=== PATIENT | male | born 1950 | race Caucasian/White ===

== ENCOUNTER 2016-05-21 12:51 | Inpatient (IN) | payer MEDICARE, OTHER ==
[2016-05-21] MEDS ORDERED: Levofloxacin/Dextrose 5%-Water 750 MG in Premix Bag 1 BAG IV ONE (13:05)
[2016-05-21] MEDS ORDERED: metroNIDAZOLE/Normal Saline 500 MG in Premix Bag 1 BAG IV ONE (13:06)
[2016-05-21] MEDS ORDERED: Acetaminophen 325 MG Tab PO ONE (13:07)
[2016-05-21] MEDS ORDERED: Lidocaine 2% Jelly 10 ML Urojet MUCMEM ONE (13:09)
--- NOTE | 2016-05-21 13:13 | EDM.PDOC ---
ED HPI GI/ABDOMINAL - General Chief Complaint: Abdominal Pain Stated Complaint: DIVERTICULITIS Time Seen by Provider: 05/21/16 12:55 Source of Information: Reports: Patient History Limitations: Reports: No limitations - History of Present Illness INITIAL COMMENTS - FREE TEXT/NARRATIVE: 65-year-old male presents to the ED with the fever chills and diffuse left lower quadrant abdominal pain. Patient was seen in the clinic via [facility] at [facility] about 2 weeks ago and was placed on a combination of Cipro and Flagyl he believes for 5 days for suspect diverticulitis. He encountered no side effects from the antibiotic such as diarrhea. Over the last 3 days left lower quadrant pain has increased in intensity. He developed high fever and chills overnight. He did have a CT scan performed at [facility] this morning and identified acute sigmoid diverticulitis. White count was also elevated at 16,000. His chief complaint was inability to void this morning. He still feels a constant need to void but is unable to pee. Bladder scan done immediately here revealed about 360 mils in his bladder. A Wynn catheter will be placed with plans on sending the urine for analysis. It is likely that the sigmoid diverticulitis his implant his prostate causing him to develop urinary retention. Plan he will have blood cultures done x2 with a CRP. After this Levaquin 750 mg will be started IV followed by Flagyl 500 mg IV since the diagnosis is already evident. Symptom Onset Date: 05/04/16 (He believes beginning symptoms started about the 14th almost 2 weeks ago. Recurrence of symptoms over the last 3-4 days. Left lower quadrant pain and inability to void today.) Timing/Duration: Reports: Day(s): Location: [facility] Quality: Reports: ache, cramping, fullness Severity: severe Improves with: Denies: defecating Worsens with: Reports: other Context: Reports: other (Diagnosed with acute sigmoid diverticulitis.). Denies : sick contact (Unable to urinate), bad/questionable food, out of country travel , recent surgery, recent trauma, lifting, activity/exercise Associated Symptoms: Reports: fever/chills, loss of appetite, malaise, nausea/ vomiting, other (As you without vomiting. Urinary retention.) Treatments BRIM BUSTER: Reports: Other (see below) (None) - Related Data Allergies/ADRs: Allergies Allergy/AdvReac Type Severity Reaction Status Date / Time No Known Allergies Allergy Verified 05/21/16 13:03 Home Meds: Home Meds Bp Pill. 08/24/13 [History] Hctz. 08/24/13 [History] Past Medical History Cardiovascular History: Reports: Hypertension Gastrointestinal History: Reports: Diverticulosis, Other (see below) ( Diverticulitis acute) Social & Family History - Tobacco Use Second Hand Smoke Exposure: No - Caffeine Use Caffeine Use: Reports: Coffee - Recreational Drug Use Recreational Drug Use: Yes - Living Situation & Occupation Living situation: Reports: Occupation: employed (Self-employed [employer].) ED ROS GENERAL - Review of Systems Review Of Systems: See Below Constitutional: Reports: fever, chills, malaise, weakness, fatigue, decreased appetite HEENT: Reports: No symptoms Respiratory: Reports: No Symptoms Cardiovascular: Reports: No symptoms Endocrine: Reports: no symptoms GI/Abdominal: Reports: Abdominal pain (See history of present illness), Decreased appetite, Nausea. Denies: Vomiting : Reports: urinary retention (Unable to void this morning) Musculoskeletal: Reports: no symptoms Skin: Reports: no symptoms Neurological: Reports: No Symptoms Psychiatric: Reports: No symptoms Hematologic/Lymphatic: Reports: no symptoms ED EXAM, GI/ABD - Physical Exam Exam: See Below Exam Limited By: No limitations General Appearance: alert, WD/WN, anxious (Mildly anxious) Eyes: bilateral: normal appearance (No jaundice) Throat/Mouth: Normal inspection, Normal lips, Normal oropharynx, Other Head: atraumatic, normocephalic (Tongue is mildly dry) Neck: normal inspection, supple, non-tender, full range of motion. No: lymphadenopathy (L), lymphadenopathy (R) Respiratory/Chest: no respiratory distress, lungs clear, normal breath sounds, no accessory muscle use, respiratory distress (Mild tachypnea due to anxiety) Cardiovascular: normal peripheral pulses, regular rate, rhythm, no edema, no gallop, no murmur, tachycardia (Mild tachycardia I believe from fever.) GI/Abdominal: hyperactive bowel sounds, tenderness, guarding, rebound (Left lower), other (Bladder is not palpable up to the umbilicus. It is perhaps palpable just above the pubic symphysis.). No: rigidity ( left lower quadrant) , hepatomegaly, splenomegaly, hernia (Male) Exam: No hernia, Normal inspection Back Exam: normal inspection, full range of motion. No: CVA tenderness (L), CVA tenderness (R) Extremities: normal inspection, normal range of motion, non-tender, no pedal edema, normal capillary refill Neurological: alert, oriented, CN II-XII intact, normal cognition Skin Exam: Warm. No: Dry (Feels very warm to palpation.), Intact, Normal color , No rash Course - Vital Signs Last Recorded V/S: Last Vital Signs Temp 38.5 C H 05/21/16 13:23 Pulse 70 05/21/16 13:09 Resp 18 05/21/16 13:09 BP 135/78 05/21/16 13:09 Pulse Ox 97 05/21/16 13:09 - Orders/Labs/Meds Orders: Active Orders 24 hr Category Date Time Status Insert Wynn Catheter [Insert Urinary Catheter] [OM.PC] Care 05/21/16 13:15 Ordered Q24H Urinary Catheter Assessment [RC] ASDIRECTED Care 05/21/16 13:10 Active CULTURE BLOOD [BC] Stat Lab 05/21/16 13:20 Received CULTURE BLOOD [BC] Stat Lab 05/21/16 13:32 Received Sodium Chloride 0.9% [Normal Saline] 1,000 ml Med 05/21/16 13:15 Active IV ASDIRECTED Blood Culture x2 Reflex Set [OM.PC] Stat Oth 05/21/16 13:05 Ordered Medication Orders Sodium Chloride (Normal Saline) 1,000 mls @ 150 mls/hr IV ASDIRECTED MONSERRAT Last Admin: 05/21/16 13:27 Dose: 150 mls/hr Labs: Laboratory Tests 05/21/16 05/21/16 05/21/16 Range/Units 13:20 13:20 14:05 WBC 16.13 H (4.23-9.07) K/mm3 RBC 4.71 (4.63-6.08) M/mm3 Hgb 14.4 (13.7-17.5) gm/L Hct 41.4 (40.1-51.0) % MCV 87.9 (79.0-92.2) fl MCH 30.6 (25.7-32.2) pg MCHC 34.8 (32.2-35.5) g/dl RDW Std Deviation 41.9 (35.1-43.9) fL Plt Count 218 (163-337) K/mm3 MPV 10.3 (9.4-12.3) fl Neutrophils % (Manual) 87 H (40-60) % Band Neutrophils % 0 (0-10) % Lymphocytes % (Manual) 8 L (20-40) % Atypical Lymphs % 0 % Monocytes % (Manual) 5 (2-10) % Eosinophils % (Manual) 0 L (0.8-7.0) % Basophils % (Manual) 0 L (0.2-1.2) Platelet Estimate Adequate RBC Morph Comment Normal Sodium 135 L (136-145) mEq/L Potassium 3.5 (3.5-5.1) mEq/L Chloride 102 (98-107) mEq/L Carbon Dioxide 24 (21-32) mEq/L Anion Gap 12.5 (5-15) BUN 22 H (7-18) mg/dL Creatinine 1.0 (0.7-1.3) mg/dL Est Cr Clr Drug Dosing 79.76 mL/min Estimated GFR (MDRD) > 60 (>60) mL/min BUN/Creatinine Ratio 22.0 H (14-18) Glucose 127 H (80-115) mg/dL Calcium 9.0 (8.5-10.1) mg/dL Total Bilirubin 1.5 H (0.2-1.0) mg/dL AST 25 (15-37) U/L ALT 36 (16-63) U/L Alkaline Phosphatase 48 (46-116) U/L C-Reactive Protein 7.6 H* (<1.0) mg/dL Total Protein 6.5 (6.4-8.2) g/dl Albumin 3.5 (3.4-5.0) g/dl Globulin 3.0 gm/dL Albumin/Globulin Ratio 1.2 (1-2) Urine Color Yellow (Yellow) Urine Appearance Slt cloudy H (Clear) Urine pH 8.5 H (5.0-8.0) Ur Specific [place] 1.015 (1.005-1.030) Urine Protein 1+ H (Negative) Urine Glucose (UA) Negative (Negative) Urine Ketones Trace H (Negative) Urine Occult Blood 1+ H (Negative) Urine Nitrite Negative (Negative) Urine Bilirubin Negative (Negative) Urine Urobilinogen 0.2 (0.2-1.0) Ur Leukocyte Esterase Negative (Negative) Urine RBC 10-20 H (0-5) /hpf Urine WBC 0-5 (0-5) /hpf Ur Squamous Epith Cells Not seen (0-5) /hpf Urine Bacteria Few (FEW) /hpf Urine Mucus Few (FEW) /hpf Meds: Medications Generic Name Dose Route Start Last Admin Trade Name Freq PRN Reason Stop Dose Admin Sodium Chloride 1,000 mls @ 150 mls/hr 05/21/16 13:15 05/21/16 13:27 Normal Saline IV 150 mls/hr ASDIRECTED MONSERRAT Administration Discontinued Medications Generic Name Dose Route Start Last Admin Trade Name Freq PRN Reason Stop Dose Admin Acetaminophen 975 mg 05/21/16 13:07 05/21/16 13:23 Tylenol PO 05/21/16 13:08 975 mg NOW ONE Administration Hydromorphone HCl 0.5 mg 05/21/16 13:18 05/21/16 13:35 Dilaudid IVPUSH 05/21/16 13:19 0.5 mg ONETIME ONE Administration Levofloxacin/Dextrose 750 mg/ 150 mls @ 100 mls/hr 05/21/16 13:05 05/21/16 13 :57 Premix IV 05/21/16 14:34 100 mls/hr ONETIME ONE Administration Metronidazole 500 mg/ Premix 100 mls @ 100 mls/hr 05/21/16 13:06 IV 05/21/16 14:05 ONETIME ONE Levofloxacin/Dextrose Confirm 05/21/16 13:15 05/21/16 14:04 Levaquin In D5w 750 Mg/150 Ml Administered 05/21/16 13:16 Not Given Dose 150 mls @ as directed IV .STK-MED ONE Lidocaine HCl 10 ml 05/21/16 13:09 05/21/16 13:31 Xylocaine 2% Jelly MUCMEM 05/21/16 13:10 10 ml ONETIME ONE Administration Ondansetron HCl 4 mg 05/21/16 13:18 05/21/16 13:38 Zofran IVPUSH 05/21/16 13:19 4 mg ONETIME ONE Administration - Radiology Interpretation Free Text/Narrative:: 65-year-old male presents the ED for evaluation of urinary retention. He was seen to the clinic this morning at [facility] and identified by CT to have acute sigmoid diverticulitis. He was treated with a short course of antibiotics Cipro and Flagyl for 5 days about 2 weeks ago for suspect diverticulitis. It appears that has reoccurred. He's developed increasing left lower quadrant abdominal pain over the last 3-4 days. Developed fever and chills overnight and this morning again. This included riders were his teeth chattering. Then developed inability to void over the last 4-6 hours. Has a constant feeling of need to void but is unable to do so. Bladder scan reveals about 3 or 60 mils of urine in the bladder. Therefore Wynn will be placed with plan to leave it in until we can get the infection under control. This is blood cultures x2 are collected and labs are completed he'll be started on Levaquin 750 mg IV and Flagyl 500 mg IV. Will be given Tylenol 975 mg orally for fever relief. We'll give him Zofran 4 mg and Dilaudid 0.5 mg for pain relief. - Re-Assessments/Exams Free Text/Narrative Re-Assessment/Exam: 05/21/16 14:55 Labs are finally back showing a white count of 16.13 with a left shift of 87% neutrophils and no bands hemoglobin is 14.4 with hematocrit of 41.4 platelets 218,000. Chemistry shows a sodium of 135 potassium low-normal at 3.5 glucose 127 and a gap is 12.5 CRP is elevated at 7.6. I had looked at the CT sent across from [facility] that was done this morning and it does show an extensive sigmoid diverticulitis. The urinalysis is within normal limits it had a few red cells in it from catheterization. There is no infection however. Case discussed with Dr. Babcock tanner rotary drum continuous process hospitalist and she'll attend the patient in the emergency room with a view to admission to the hospital for inpatient management of his infection. Patient feels that there is some relief of the discomfort after having a Wynn catheter placed and therefore we'll leave it in. Fortunately the infection in the rectosigmoid is right behind his prostate which is causing the constant feeling of need to void and then inability to void for a period of time. Departure - Departure Time of Disposition: 15:10 Disposition: Admitted As Inpatient 65 Condition: fair Clinical Impression: Urinary retention, Acute febrile illness Diverticulitis large intestine Qualifiers: Diverticulitis bleeding: without bleeding Diverticulitis complication: without perforation or abscess Qualified Code(s): K57.32 - Diverticulitis of large intestine without perforation or abscess without bleeding Forms: ED Department Discharge - My Orders Last 24 Hours: My Active Orders 05/21/16 13:05 Blood Culture x2 Reflex Set [OM.PC] Stat 05/21/16 13:10 Urinary Catheter Assessment [RC] ASDIRECTED 05/21/16 13:15 Insert Wynn Catheter [Insert Urinary Catheter] [OM.PC] Q24H Sodium Chloride 0.9% [Normal Saline] 1,000 ml IV ASDIRECTED 05/21/16 13:20 CULTURE BLOOD [BC] Stat 05/21/16 13:32 CULTURE BLOOD [BC] Stat - Assessment/Plan Last 24 Hours: My Active Orders 05/21/16 13:05 Blood Culture x2 Reflex Set [OM.PC] Stat 05/21/16 13:10 Urinary Catheter Assessment [RC] ASDIRECTED 05/21/16 13:15 Insert Wynn Catheter [Insert Urinary Catheter] [OM.PC] Q24H Sodium Chloride 0.9% [Normal Saline] 1,000 ml IV ASDIRECTED 05/21/16 13:20 CULTURE BLOOD [BC] Stat 05/21/16 13:32 CULTURE BLOOD [BC] Stat
[2016-05-21] MEDS ORDERED: Levofloxacin/Dextrose 5%-Water 150 ML IV ONE (13:15)
[2016-05-21] MEDS ORDERED: Sodium Chloride 0.9% 1,000 ML IV SCH (13:15)
[2016-05-21] MEDS ORDERED: HYDROmorphone 0.5 MG/0.5 ML Syringe IVPUSH ONE (13:18)
[2016-05-21] MEDS ORDERED: Ondansetron 4 MG/2 ML SDV IVPUSH ONE (13:18)
[2016-05-21] MEDS ORDERED: metroNIDAZOLE/Normal Saline 100 ML ONE (15:44)
[2016-05-21] MEDS ORDERED: HYDROmorphone 1 MG/ML Syringe IVPUSH PRN (17:22)
[2016-05-21] MEDS ORDERED: Promethazine 12.5 MG in Sodium Chloride 0.9% 50 ML IV PRN (17:25)
[2016-05-21] MEDS ORDERED: Diphtheria,Pertussis(Acell),Tetanus Vaccine 0.5 ML SDV inactive IM ONE (17:30)
[2016-05-21] MEDS ORDERED: Acetaminophen/HYDROcodone 325-10 MG Tab PO PRN (19:31)
--- NOTE | 2016-05-21 19:33 | PCM.HP ---
H&P History of Present Illness - General Date of Service: 05/21/16 Admit Problem/Dx: Admission Diagnosis/Problem Admission Diagnosis/Problem Diverticulitis Source of Information: Patient, Provider History Limitations: Reports: No limitations - History of Present Illness Initial Comments - Free Text/Narative: 65 year old male with a history of hypertension, diverticulitis presents with abdominal paibn. Recent treated with a five day course of cipro/flagyl for acute diverticulitis. CT of abdomen at [place] revealed acute sigmoid diverticulitis, uncomplicated. Additionally, he has been unable to pass urine today. A estrada catheter has been placed, prior to insertion, >300 cc was documented on bladder scan. Labs: WBC 16.13 (87%, left shift); Crp7.6. Onset of Symptoms: Reports: sudden. Denies: unknown/unsure Symptom Onset Date: 05/20/16 Duration of Symptoms: Reports: Day(s):, Getting worse. Denies: Week(s): Location: Reports: pelvis Severity: moderate Improves with: Reports: Medication Worsens with: Reports: None Associated Symptoms: Reports: fever/chills, other (urinary retention) Lower Abdomen Pain Score (Numeric/FACES): 4 - Related Data Allergies/Adverse Reactions: Allergies Allergy/AdvReac Type Severity Reaction Status Date / Time No Known Allergies Allergy Verified 05/21/16 13:03 Home Medications: Home Meds Bp Pill. 08/24/13 [History] Hctz. 08/24/13 [History] Past Medical History Cardiovascular History: Reports: Hypertension Gastrointestinal History: Reports: Diverticulosis Neurological History: Reports: Vertigo Other Neuro History: about 20 years ago Oncologic (Cancer) History: Reports: Basal cell carcinoma Other Oncologic History: PT. had patch of cancer removed off of his ear, aprox. 15-20 years, and a spot on his arm aprox. 1 year ago. - Infectious Disease History Infectious Disease History: Reports: Chicken pox, Measles, Mumps - Past Surgical History Cardiovascular Surgical History: Reports: None GI Surgical History: Reports: None Neurological Surgical History: Reports: None Oncologic Surgical History: Reports: None Dermatological Surgical History: Reports: None Social & Family History - Family History Family Medical History: Noncontributory - Tobacco Use Smoking Status *Q: Never Smoker Second Hand Smoke Exposure: No - Caffeine Use Caffeine Use: Reports: Coffee, Tea Other Caffeine Use: 1 cup, - Recreational Drug Use Recreational Drug Use: No - Living Situation & Occupation Living situation: Reports: Occupation: employed (Self-employed [employer].) H&P Review of Systems - Review of Systems: Review Of Systems: See Below General: Reports: fever, chills, malaise HEENT: Reports: no symptoms Pulmonary: Reports: No Symptoms Cardiovascular: Reports: no symptoms Gastrointestinal: Reports: Abdominal pain Genitourinary: Reports: frequency, retention, other (incomplete emptying) Musculoskeletal: Reports: no symptoms Skin: Reports: no symptoms Psychiatric: Reports: no symptoms Neurological: Reports: No Symptoms Hematologic/Lymphatic: Reports: no symptoms Immunologic: Reports: no symptoms Exam - Exam Exam: See Below - Vital Signs Vital Signs: Last Vital Signs Temp 37.2 C 05/21/16 16:45 Pulse 76 05/21/16 16:45 Resp 16 05/21/16 16:45 BP 140/85 05/21/16 16:45 Pulse Ox 98 05/21/16 16:45 Weight: 79.515 kg - Exam Quality Assessment: urinary catheter, DVT prophylaxis General: alert, oriented, cooperative HEENT: Conjunctiva clear, Nares patent, Normal nasal septum, Pupils equal, Pupils reactive Neck: supple, trachea midline Lungs: Normal respiratory effort Cardiovascular: regular rate Abdomen: normal bowel sounds, soft (Male) Exam: Deferred Rectal (Males) Exam: Deferred Back Exam: normal inspection Extremities: normal pulses Skin: warm Neurological: cranial nerves intact, normal gait, normal speech Neuro Extensive - Mental Status: alert, oriented x3, normal mood/affect, normal cognition, memory intact Neuro Extensive - Motor, Sensory, Reflexes: CN II-XII intact Psychiatric: alert, normal affect, normal mood - Patient Data Result Diagrams: 05/21/16 13:20 05/21/16 13:20 *Q Meaningful Use (ADM) - VTE *Q VTE Criteria *Q: - Stroke *Q Stroke Criteria *Q: - AMI *Q AMI Criteria *Q: - Problem List (1) Acute febrile illness SNOMED Code(s): 160843987 ICD Code: R50.9 - FEVER, UNSPECIFIED Status: Acute Current Visit: Yes (2) Diverticulitis large intestine SNOMED Code(s): 2691061 ICD Code: K57.32 - DVTRCLI OF LG INT W/O PERFORATION OR ABSCESS W/O BLEEDING Status: Acute Current Visit: Yes Qualifiers: Diverticulitis bleeding: without bleeding Diverticulitis complication: without perforation or abscess Qualified Code(s): K57.32 - Diverticulitis of large intestine without perforation or abscess without bleeding (3) Urinary retention SNOMED Code(s): 043278766 ICD Code: R33.9 - RETENTION OF URINE, UNSPECIFIED Status: Acute Current Visit: Yes Problem List Initiated/Reviewed/Updated: Yes Orders Last 24hrs: Active Orders 24 hr Category Date Time Status Activity as Tolerated [RC] .Routine Care 05/21/16 19:05 Active Vaccines to be Administered [RC] PER UNIT ROUTINE Care 05/21/16 17:30 Active Consult to Care Management [Consult to Case Management] Cons 05/21/16 18:58 Active [CONS] Routine Consult to Occupational Therapy [OT Evaluation and Cons 05/24/16 10:00 Active Treatment] [CONS] Routine Consult to Physical Therapy [PT Evaluation and Cons 05/24/16 09:00 Active Treatment] [CONS] Routine NPO Now [Nothing per Oral Now Diet] [DIET] Diet 05/21/16 Breakfast Active BASIC METABOLIC PANEL,BMP [CHEM] DAILY Lab 05/22/16 05:00 Ordered BASIC METABOLIC PANEL,BMP [CHEM] DAILY Lab 05/23/16 05:00 Ordered BASIC METABOLIC PANEL,BMP [CHEM] DAILY Lab 05/24/16 05:00 Ordered BASIC METABOLIC PANEL,BMP [CHEM] DAILY Lab 05/25/16 05:00 Ordered CBC WITH AUTO DIFF [HEME] DAILY Lab 05/22/16 05:00 Ordered CBC WITH AUTO DIFF [HEME] DAILY Lab 05/23/16 05:00 Ordered CBC WITH AUTO DIFF [HEME] DAILY Lab 05/24/16 05:00 Ordered CBC WITH AUTO DIFF [HEME] DAILY Lab 05/25/16 05:00 Ordered CRP [C-REACTIVE PROTEIN] [CHEM] DAILY Lab 05/22/16 05:00 Ordered CRP [C-REACTIVE PROTEIN] [CHEM] DAILY Lab 05/23/16 05:00 Ordered CRP [C-REACTIVE PROTEIN] [CHEM] DAILY Lab 05/24/16 05:00 Ordered CRP [C-REACTIVE PROTEIN] [CHEM] DAILY Lab 05/25/16 05:00 Ordered LACTIC ACID [CHEM] Routine Lab 05/22/16 05:00 Ordered LIPID PANEL [CHEM] Routine Lab 05/22/16 05:00 Ordered MAGNESIUM [CHEM] DAILY Lab 05/22/16 05:00 Ordered MAGNESIUM [CHEM] DAILY Lab 05/23/16 05:00 Ordered MAGNESIUM [CHEM] DAILY Lab 05/24/16 05:00 Ordered MAGNESIUM [CHEM] DAILY Lab 05/25/16 05:00 Ordered Acetaminophen/HYDROcodone [[place] 325-10 MG] Med 05/21/16 19:31 Ordered 1 tab PO Q4H PRN HYDROmorphone [Dilaudid] Med 05/21/16 17:22 Active 1 mg IVPUSH Q4H PRN Levofloxacin/Dextrose 5%-Water [Levaquin in D5W 750 MG/ Med 05/22/16 11:00 Active 150 ML] 750 mg Premix Bag 1 bag IV Q24H Ondansetron [Zofran] Med 05/21/16 17:23 Active 4 mg IVPUSH Q8H PRN Promethazine [Phenergan] 12.5 mg Med 05/21/16 17:25 Active Sodium Chloride 0.9% [Normal Saline] 50 ml IV Q6H Sodium Chloride 0.45% 1,000 ml Med 05/21/16 17:45 Active IV ASDIRECTED Tamsulosin [Flomax] Med 05/23/16 09:00 Active 0.4 mg PO BIDPC metroNIDAZOLE/Normal Saline [Flagyl 500 MG in NS 100 ML Med 05/21/16 21:00 Active ] 500 mg Premix Bag 1 bag IV Q8H Medication Orders Hydrocodone Bitart/Acetaminophen ([place] 325-10 Mg) 1 tab PO Q4H PRN PRN Reason: Pain Hydromorphone HCl (Dilaudid) 1 mg IVPUSH Q4H PRN PRN Reason: Pain (moderate 4-6) Last Admin: 05/21/16 17:30 Dose: 1 mg Promethazine HCl 12.5 mg/ (Sodium Chloride) 50.5 mls @ 100 mls/hr IV Q6H PRN PRN Reason: Nausea/Vomiting Levofloxacin/Dextrose 750 mg/ (Premix) 150 mls @ 100 mls/hr IV Q24H MONSERRAT Sodium Chloride (Sodium Chloride 0.45%) 1,000 mls @ 999 mls/hr IV ASDIRECTED MONSERRAT Metronidazole 500 mg/ Premix 100 mls @ 100 mls/hr IV Q8H MONSERRAT Ondansetron HCl (Zofran) 4 mg IVPUSH Q8H PRN PRN Reason: Nausea/Vomiting Tamsulosin HCl (Flomax) 0.4 mg PO BIDPC MONSERRAT Assessment/Plan Comment:: Impression: Failed outpatient therapy for acute diverticulitis Urinary retention, s/p estrada Hypertension Plan: IVF Electrolyte replacement Pain mgt NPO except ice Levoquin/Flagyl DVT/GI prophylaxis
[2016-05-21] MEDS: metroNIDAZOLE/Normal Saline 500 MG in Premix Bag 1 BAG IV SCH (20:35)
[2016-05-21] MEDS: LORazepam 2 MG/ML MDV IVPUSH PRN (20:42)
[2016-05-21] MEDS: Sodium Chloride 0.45% 1,000 ML IV SCH ×3 (20:51→22:55)
[2016-05-22] MEDS: metroNIDAZOLE/Normal Saline 500 MG in Premix Bag 1 BAG IV SCH ×3 (04:37→20:43)
[2016-05-22] MEDS: HYDROmorphone 1 MG/ML Syringe IVPUSH PRN ×2 (04:41)
[2016-05-22] MEDS ORDERED: Naloxone 0.4 MG/ML SDV ONE ×2 (06:18→06:24)
[2016-05-22] MEDS ORDERED: Naloxone 2 MG/2 ML Syringe IVPUSH ONE ×2 (06:23→06:57)
[2016-05-22] MEDS ORDERED: Ketorolac 30 MG/ML SDV IVPUSH ONE (08:30)
[2016-05-22] MEDS: Sodium Chloride 0.45% 1,000 ML IV SCH (08:32)
[2016-05-22] MEDS: Enoxaparin 40 MG/0.4 ML Syringe SUBCUT SCH (08:35)
[2016-05-22] MEDS ORDERED: Sodium Chloride 0.9% 1,000 ML IV SCH (08:45)
[2016-05-22] MEDS: Levofloxacin/Dextrose 5%-Water 750 MG in Premix Bag 1 BAG IV SCH (11:03)
[2016-05-22] MEDS: Magnesium Sulfate/Water 2 GM in Premix Bag 1 BAG IV SCH ×2 (11:03→12:18)
--- NOTE | 2016-05-22 13:36 | PCM.PN ---
- General Info Date of Service: 05/22/16 Admission Dx/Problem (Free Text): S/P respiratory distress (rapid response) after dilaudid 2 mg given IV; received narcan with good response; pain meds have been adjusted Functional Status: Reports: pain controlled, tolerating diet (ice chips), ambulating, urinating - Review of Systems General: Reports: No Symptoms HEENT: Reports: no symptoms Pulmonary: Reports: no symptoms Cardiovascular: Reports: No Symptoms Gastrointestinal: Reports: Abdominal pain (mild) Genitourinary: Reports: no symptoms Musculoskeletal: Reports: no symptoms Skin: Reports: no symptoms Neurological: Reports: No Symptoms Psychiatric: Reports: no symptoms - Patient Data Vitals - most recent: Last Vital Signs Temp 36.6 C 05/22/16 12:05 Pulse 60 05/22/16 12:05 Resp 18 05/22/16 12:05 BP 96/59 L 05/22/16 12:05 Pulse Ox 96 05/22/16 12:05 Weight - most recent: 79.878 kg I&O - last 24 hours: Intake & Output 05/21/16 05/22/16 05/22/16 22:59 06:59 14:59 Intake Total 4789 0 Output Total 300 750 Balance -300 4039 0 Lab Results last 24 hrs: Laboratory Results - last 24 hr 05/22/16 05/22/16 05/22/16 Range/Units 04:30 04:30 04:30 WBC 17.49 H (4.23-9.07) K/mm3 RBC 4.44 L (4.63-6.08) M/mm3 Hgb 13.5 L (13.7-17.5) gm/L Hct 39.4 L (40.1-51.0) % MCV 88.7 (79.0-92.2) fl MCH 30.4 (25.7-32.2) pg MCHC 34.3 (32.2-35.5) g/dl RDW Std Deviation 42.6 (35.1-43.9) fL Plt Count 168 (163-337) K/mm3 MPV 10.0 (9.4-12.3) fl Neut % (Auto) 88.9 H (34.0-67.9) % Lymph % (Auto) 4.5 L (21.8-53.1) % [place] % (Auto) 6.2 (5.3-12.2) % Eos % (Auto) 0 L (0.8-7.0) Baso % (Auto) 0.1 (0.1-1.2) % Neut # (Auto) 15.56 H (1.78-5.38) K/mm3 Lymph # (Auto) 0.78 L (1.32-3.57) K/mm3 [place] # (Auto) 1.09 H (0.30-0.82) K/mm3 Eos # (Auto) 0.00 L (0.04-0.54) K/mm3 Baso # (Auto) 0.01 (0.01-0.08) K/mm3 Manual Slide Review Abnormal smear Sodium 134 L (136-145) mEq/L Potassium 3.9 (3.5-5.1) mEq/L Chloride 104 (98-107) mEq/L Carbon Dioxide 24 (21-32) mEq/L Anion Gap 9.9 (5-15) BUN 24 H (7-18) mg/dL Creatinine 1.1 (0.7-1.3) mg/dL Est Cr Clr Drug Dosing 72.51 mL/min Estimated GFR (MDRD) > 60 (>60) mL/min BUN/Creatinine Ratio 21.8 H (14-18) Glucose 100 (80-115) mg/dL Lactic Acid 0.7 (0.4-2.0) mmol/L Calcium 8.1 L (8.5-10.1) mg/dL Magnesium 1.5 L (1.8-2.4) mg/dl C-Reactive Protein 19.1 H* (<1.0) mg/dL Triglycerides 25 (<150) mg/dL Cholesterol 130 (<200) mg/dL LDL Cholesterol Direct 71 (<100) mg/dL HDL Cholesterol 60.0 H (40-59) mg/dL Med Orders - Current: Current Medications Enoxaparin Sodium (Lovenox) 40 mg SUBCUT DAILY [facility] Last Admin: 05/22/16 08:35 Dose: 40 mg Promethazine HCl 12.5 mg/ (Sodium Chloride) 50.5 mls @ 100 mls/hr IV Q6H PRN PRN Reason: Nausea/Vomiting Levofloxacin/Dextrose 750 mg/ (Premix) 150 mls @ 100 mls/hr IV Q24H [facility] Last Infusion: 05/22/16 12:32 Dose: Infused Metronidazole 500 mg/ Premix 100 mls @ 100 mls/hr IV Q8H [facility] Last Admin: 05/22/16 13:32 Dose: 100 mls/hr Sodium Chloride (Normal Saline) 1,000 mls @ 150 mls/hr IV ASDIRECTED [facility] Ketorolac Tromethamine (Toradol) 30 mg IVPUSH Q6H [facility] Stop: 05/23/16 20:31 Lorazepam (Ativan) 1 mg IVPUSH BEDTIME PRN PRN Reason: Insomnia Last Admin: 05/21/16 20:42 Dose: 1 mg Ondansetron HCl (Zofran) 4 mg IVPUSH Q8H PRN PRN Reason: Nausea/Vomiting Tamsulosin HCl (Flomax) 0.4 mg PO BIDPC [facility] Discontinued Medications Acetaminophen (Tylenol) 975 mg PO NOW ONE Stop: 05/21/16 13:08 Last Admin: 05/21/16 13:23 Dose: 975 mg Hydrocodone Bitart/Acetaminophen ([place] 325-10 Mg) 1 tab PO Q4H PRN PRN Reason: Pain Last Admin: 05/21/16 20:41 Dose: 1 tab Diphtheria/Tetanus/Acell Pertussis (Boostrix) 0.5 ml IM .ONCE ONE Stop: 05/21/16 17:31 Hydromorphone HCl (Dilaudid) 0.5 mg IVPUSH ONETIME ONE Stop: 05/21/16 13:19 Last Admin: 05/21/16 13:35 Dose: 0.5 mg Hydromorphone HCl (Dilaudid) 1 mg IVPUSH Q4H PRN PRN Reason: Pain (moderate 4-6) Last Admin: 05/21/16 17:30 Dose: 1 mg Hydromorphone HCl (Dilaudid) 2 mg IVPUSH Q4H PRN PRN Reason: Pain (moderate 4-6) Last Admin: 05/22/16 04:41 Dose: 2 mg Levofloxacin/Dextrose 750 mg/ (Premix) 150 mls @ 100 mls/hr IV ONETIME ONE Stop: 05/21/16 14:34 Last Admin: 05/21/16 13:57 Dose: 100 mls/hr Sodium Chloride (Normal Saline) 1,000 mls @ 150 mls/hr IV ASDIRECTED [facility] Last Admin: 05/21/16 13:27 Dose: 150 mls/hr Metronidazole 500 mg/ Premix 100 mls @ 100 mls/hr IV ONETIME ONE Stop: 05/21/16 14:05 Last Admin: 05/21/16 15:36 Dose: 100 mls/hr Levofloxacin/Dextrose (Levaquin In D5w 750 Mg/150 Ml) Confirm Administered Dose 150 mls @ as directed IV .STK-MED ONE Stop: 05/21/16 13:16 Last Admin: 05/21/16 14:04 Dose: Not Given Metronidazole (Flagyl 500 Mg In Ns 100 Ml) Confirm Administered Dose 100 mls @ as directed .ROUTE .ST-MED ONE Stop: 05/21/16 15:45 Last Admin: 05/21/16 15:55 Dose: Not Given Sodium Chloride (Sodium Chloride 0.45%) 1,000 mls @ [facility] Last Admin: 05/22/16 08:32 Dose: 150 mls/hr Sodium Chloride (Normal Saline) 1,000 mls @ 150 mls/hr IV ASDIRECTED [facility] Magnesium Sulfate 2 gm/ Premix 50 mls @ 25 mls/hr IV Q1H [facility] Stop: 05/22/16 12:29 Last Admin: 05/22/16 12:18 Dose: Not Given Ketorolac Tromethamine (Toradol) 60 mg IVPUSH ONETIME ONE Stop: 05/22/16 08:31 Last Admin: 05/22/16 08:35 Dose: 60 mg Lidocaine HCl (Xylocaine 2% Jelly) 10 ml MUCMEM ONETIME ONE Stop: 05/21/16 13:10 Last Admin: 05/21/16 13:31 Dose: 10 ml Naloxone HCl (Narcan) Confirm Administered Dose 0.4 mg .ROUTE .ST-MED ONE Stop: 05/22/16 06:19 Last Admin: 05/22/16 06:23 Dose: 0.4 mg Naloxone HCl (Narcan) Confirm Administered Dose 0.4 mg .ROUTE .ST-MED ONE Stop: 05/22/16 06:25 Last Admin: 05/22/16 06:57 Dose: 0.4 mg Naloxone HCl (Narcan) 0.4 mg IVPUSH ONETIME ONE Stop: 05/22/16 06:24 Last Admin: 05/22/16 08:59 Dose: Not Given Naloxone HCl (Narcan) 0.4 mg IVPUSH ONETIME ONE Stop: 05/22/16 06:58 Last Admin: 05/22/16 09:01 Dose: Not Given Ondansetron HCl (Zofran) 4 mg IVPUSH ONETIME ONE Stop: 05/21/16 13:19 Last Admin: 05/21/16 13:38 Dose: 4 mg - Exam Quality Assessment: urine catheter, DVT prophylaxis General: alert, oriented, cooperative, no acute distress HEENT: Pupils equal, Pupils reactive, EOMI Neck: supple, trachea midline, no JVD Lungs: Normal respiratory effort Cardiovascular: Regular Rate, Regular Rhythm Abdomen: bowel sounds present, soft, no distension, tenderness (LLQ) (Male) Exam: Deferred Back Exam: normal inspection Extremities: normal pulses Skin: warm Neurological: no new focal deficit, normal gait, normal speech Psy/Mental Status: alert, normal affect, normal mood - Problem List & Annotations (1) Acute febrile illness SNOMED Code(s): 123839435 Code(s): R50.9 - FEVER, UNSPECIFIED Status: Acute Current Visit: Yes (2) Diverticulitis large intestine SNOMED Code(s): 0717109 Code(s): K57.32 - DVTRCLI OF LG INT W/O PERFORATION OR ABSCESS W/O BLEEDING Status: Acute Current Visit: Yes Qualifiers: Diverticulitis bleeding: without bleeding Diverticulitis complication: without perforation or abscess Qualified Code(s): K57.32 - Diverticulitis of large intestine without perforation or abscess without bleeding (3) Urinary retention SNOMED Code(s): 881975870 Code(s): R33.9 - RETENTION OF URINE, UNSPECIFIED Status: Acute Current Visit: Yes - Problem List Review Problem List Initiated/Reviewed/Updated: Yes - My Orders Last 24 Hours: My Active Orders 05/21/16 17:23 Ondansetron [Zofran] 4 mg IVPUSH Q8H PRN 05/21/16 17:25 Promethazine [Phenergan] 12.5 mg Sodium Chloride 0.9% [Normal Saline] 50 ml IV Q6H 05/21/16 17:30 Vaccines to be Administered [RC] PER UNIT ROUTINE 05/21/16 18:58 Consult to Care Management [Consult to Case Management] [CONS] Routine 05/21/16 19:05 Activity as Tolerated [RC] Q4HR 05/21/16 19:33 Resuscitation Status Routine 05/21/16 19:34 Antiembolic Devices [RC] 10,22 RO Hose [Antiembolic Hose] [OM.PC] Routine 05/21/16 20:03 LORazepam [Ativan] 1 mg IVPUSH BEDTIME PRN 05/21/16 21:00 metroNIDAZOLE/Normal Saline [Flagyl 500 MG in NS 100 ML] 500 mg Premix Bag 1 bag IV Q8H 05/22/16 07:10 Transfer Patient (Change bed) [ADT] Routine 05/22/16 08:18 Communication Order [RC] DAILY 05/22/16 09:00 Enoxaparin [Lovenox] 40 mg SUBCUT DAILY Sodium Chloride 0.9% [Normal Saline] 1,000 ml IV ASDIRECTED 05/22/16 10:11 Patient Status [ADT] Routine 05/22/16 11:00 Levofloxacin/Dextrose 5%-Water [Levaquin in D5W 750 MG/150 ML] 750 mg Premix Bag 1 bag IV Q24H 05/22/16 14:30 Ketorolac [Toradol] 30 mg IVPUSH Q6H 05/22/16 Lunch Clear Liquid Diet [DIET] 05/23/16 05:00 BASIC METABOLIC PANEL,BMP [CHEM] DAILY CBC WITH AUTO DIFF [HEME] DAILY CRP [C-REACTIVE PROTEIN] [CHEM] DAILY MAGNESIUM [CHEM] DAILY 05/23/16 09:00 Tamsulosin [Flomax] 0.4 mg PO BIDPC 05/24/16 05:00 BASIC METABOLIC PANEL,BMP [CHEM] DAILY CBC WITH AUTO DIFF [HEME] DAILY CRP [C-REACTIVE PROTEIN] [CHEM] DAILY MAGNESIUM [CHEM] DAILY 05/24/16 07:00 CBC W/O DIFF,HEMOGRAM [HEME] MOTH@0700 05/24/16 09:00 Consult to Physical Therapy [PT Evaluation and Treatment] [CONS] Routine 05/24/16 10:00 Consult to Occupational Therapy [OT Evaluation and Treatment] [CONS] Routine 05/25/16 05:00 BASIC METABOLIC PANEL,BMP [CHEM] DAILY CBC WITH AUTO DIFF [HEME] DAILY CRP [C-REACTIVE PROTEIN] [CHEM] DAILY MAGNESIUM [CHEM] DAILY 05/27/16 07:00 CBC W/O DIFF,HEMOGRAM [HEME] MOTH@69905/31/16 07:00 CBC W/O DIFF,HEMOGRAM [HEME] MOTH@69906/03/16 07:00 CBC W/O DIFF,HEMOGRAM [HEME] MOTH@69906/07/16 07:00 CBC W/O DIFF,HEMOGRAM [HEME] MOTH@69906/10/16 07:00 CBC W/O DIFF,HEMOGRAM [HEME] MOTH@699 - Plan Plan:: Impression: Failed outpatient therapy for acute diverticulitis Urinary retention, s/p estrada Hypertension Plan: IVF Electrolyte replacement Foleyn trail, initiate, flomax bid Pain mgt Advance to clear liquids Levoquin/Flagyl DVT/GI prophylaxis
[2016-05-22] MEDS: Ketorolac 30 MG/ML SDV IVPUSH SCH ×2 (14:48→20:43)
[2016-05-22] MEDS: Sodium Chloride 0.9% 1,000 ML IV SCH ×2 (15:00→21:46)
[2016-05-22] MEDS ORDERED: Tamsulosin 0.4 MG Cap.ER PO ONE (18:09)
[2016-05-23] MEDS: Ketorolac 30 MG/ML SDV IVPUSH SCH ×4 (02:17→20:35)
[2016-05-23] MEDS: Ondansetron 4 MG/2 ML SDV IVPUSH PRN ×3 (02:18→20:52)
[2016-05-23] MEDS: LORazepam 2 MG/ML MDV IVPUSH PRN (02:28)
[2016-05-23] MEDS: Sodium Chloride 0.9% 1,000 ML IV SCH ×2 (04:26→11:07)
[2016-05-23] MEDS: metroNIDAZOLE/Normal Saline 500 MG in Premix Bag 1 BAG IV SCH ×3 (04:26→20:37)
[2016-05-23] MEDS: Tamsulosin 0.4 MG Cap.ER PO SCH ×2 (09:33→18:25)
[2016-05-23] MEDS: Enoxaparin 40 MG/0.4 ML Syringe SUBCUT SCH (09:33)
[2016-05-23] MEDS: Levofloxacin/Dextrose 5%-Water 750 MG in Premix Bag 1 BAG IV SCH (11:07)
[2016-05-23] MEDS: Dextrose 5%-0.45% NaCl 1,000 ML IV SCH ×2 (13:17→20:32)
--- NOTE | 2016-05-23 15:33 | PCM.PN ---
- General Info Date of Service: 05/23/16 Subjective Update: 2 the patient reports that his abdominal pain is not much different than before , however still has improved since admission. He continues to have nausea and vomited earlier this morning. On review of systems, he does not report any chest pain or shortness of breath, but does report continued on his mentioned above. - Patient Data Vitals - most recent: Last Vital Signs Temp 36.8 C 05/23/16 14:41 Pulse 76 05/23/16 14:41 Resp 18 05/23/16 14:41 BP 136/76 05/23/16 14:41 Pulse Ox 97 05/23/16 14:41 Weight - most recent: 79.878 kg I&O - last 24 hours: Intake & Output 05/23/16 05/23/16 05/23/16 06:59 14:59 22:59 Intake Total 990 447 Output Total 650 500 Balance 340 -53 Lab Results last 24 hrs: Laboratory Results - last 24 hr 05/23/16 05/23/16 Range/Units 06:04 06:04 WBC 14.77 H (4.23-9.07) K/mm3 RBC 4.02 L (4.63-6.08) M/mm3 Hgb 12.1 L (13.7-17.5) gm/L Hct 35.6 L (40.1-51.0) % MCV 88.6 (79.0-92.2) fl MCH 30.1 (25.7-32.2) pg MCHC 34.0 (32.2-35.5) g/dl RDW Std Deviation 42.3 (35.1-43.9) fL Plt Count 157 L (163-337) K/mm3 MPV 10.9 (9.4-12.3) fl Neut % (Auto) 89.5 H (34.0-67.9) % Lymph % (Auto) 3.1 L (21.8-53.1) % [place] % (Auto) 7.1 (5.3-12.2) % Eos % (Auto) 0.1 L (0.8-7.0) Baso % (Auto) 0.1 (0.1-1.2) % Neut # (Auto) 13.22 H (1.78-5.38) K/mm3 Lymph # (Auto) 0.46 L (1.32-3.57) K/mm3 [place] # (Auto) 1.05 H (0.30-0.82) K/mm3 Eos # (Auto) 0.01 L (0.04-0.54) K/mm3 Baso # (Auto) 0.01 (0.01-0.08) K/mm3 Manual Slide Review Abnormal smear Sodium 134 L (136-145) mEq/L Potassium 3.8 (3.5-5.1) mEq/L Chloride 104 (98-107) mEq/L Carbon Dioxide 23 (21-32) mEq/L Anion Gap 10.8 (5-15) BUN 32 H (7-18) mg/dL Creatinine 1.0 (0.7-1.3) mg/dL Est Cr Clr Drug Dosing 79.76 mL/min Estimated GFR (MDRD) > 60 (>60) mL/min BUN/Creatinine Ratio 32.0 H (14-18) Glucose 143 H (80-115) mg/dL Calcium 8.0 L (8.5-10.1) mg/dL Magnesium 2.0 (1.8-2.4) mg/dl C-Reactive Protein 22.1 H* (<1.0) mg/dL Med Orders - Current: Current Medications Enoxaparin Sodium (Lovenox) 40 mg SUBCUT DAILY [facility] Last Admin: 05/23/16 09:33 Dose: 40 mg Promethazine HCl 12.5 mg/ (Sodium Chloride) 50.5 mls @ 100 mls/hr IV Q6H PRN PRN Reason: Nausea/Vomiting Levofloxacin/Dextrose 750 mg/ (Premix) 150 mls @ 100 mls/hr IV Q24H [facility] Last Infusion: 05/23/16 12:56 Dose: Infused Metronidazole 500 mg/ Premix 100 mls @ 100 mls/hr IV Q8H [facility] Last Infusion: 05/23/16 14:49 Dose: Infused Dextrose/Sodium Chloride (Dextrose 5%-1/2 Ns) 1,000 mls @ 150 mls/hr IV ASDIRECTED [facility] Last Admin: 05/23/16 13:17 Dose: 150 mls/hr Ketorolac Tromethamine (Toradol) 30 mg IVPUSH Q6H [facility] Stop: 05/23/16 20:31 Last Admin: 05/23/16 15:16 Dose: 30 mg Lorazepam (Ativan) 1 mg IVPUSH BEDTIME PRN PRN Reason: Insomnia Last Admin: 05/23/16 02:28 Dose: 0.5 mg Ondansetron HCl (Zofran) 4 mg IVPUSH Q8H PRN PRN Reason: Nausea/Vomiting Last Admin: 05/23/16 09:36 Dose: 4 mg Tamsulosin HCl (Flomax) 0.4 mg PO BIDPC [facility] Last Admin: 05/23/16 09:33 Dose: 0.4 mg Temazepam (Restoril) 7.5 mg PO BEDTIME PRN PRN Reason: Sleep Discontinued Medications Acetaminophen (Tylenol) 975 mg PO NOW ONE Stop: 05/21/16 13:08 Last Admin: 05/21/16 13:23 Dose: 975 mg Hydrocodone Bitart/Acetaminophen ([place] 325-10 Mg) 1 tab PO Q4H PRN PRN Reason: Pain Last Admin: 05/21/16 20:41 Dose: 1 tab Diphtheria/Tetanus/Acell Pertussis (Boostrix) 0.5 ml IM .ONCE ONE Stop: 05/21/16 17:31 Hydromorphone HCl (Dilaudid) 0.5 mg IVPUSH ONETIME ONE Stop: 05/21/16 13:19 Last Admin: 05/21/16 13:35 Dose: 0.5 mg Hydromorphone HCl (Dilaudid) 1 mg IVPUSH Q4H PRN PRN Reason: Pain (moderate 4-6) Last Admin: 05/21/16 17:30 Dose: 1 mg Hydromorphone HCl (Dilaudid) 2 mg IVPUSH Q4H PRN PRN Reason: Pain (moderate 4-6) Last Admin: 05/22/16 04:41 Dose: 2 mg Levofloxacin/Dextrose 750 mg/ (Premix) 150 mls @ 100 mls/hr IV ONETIME ONE Stop: 05/21/16 14:34 Last Admin: 05/21/16 13:57 Dose: 100 mls/hr Sodium Chloride (Normal Saline) 1,000 mls @ 150 mls/hr IV ASDIRECTED [facility] Last Admin: 05/21/16 13:27 Dose: 150 mls/hr Metronidazole 500 mg/ Premix 100 mls @ 100 mls/hr IV ONETIME ONE Stop: 05/21/16 14:05 Last Admin: 05/21/16 15:36 Dose: 100 mls/hr Levofloxacin/Dextrose (Levaquin In D5w 750 Mg/150 Ml) Confirm Administered Dose 150 mls @ as directed IV .STK-MED ONE Stop: 05/21/16 13:16 Last Admin: 05/21/16 14:04 Dose: Not Given Metronidazole (Flagyl 500 Mg In Ns 100 Ml) Confirm Administered Dose 100 mls @ as directed .ROUTE .STK-MED ONE Stop: 05/21/16 15:45 Last Admin: 05/21/16 15:55 Dose: Not Given Sodium Chloride (Sodium Chloride 0.45%) 1,000 mls @ 999 mls/hr IV ASDIRECTED [facility] Last Infusion: 05/22/16 14:58 Dose: Infused Sodium Chloride (Normal Saline) 1,000 mls @ 150 mls/hr IV ASDIRECTED [facility] Sodium Chloride (Normal Saline) 1,000 mls @ 150 mls/hr IV ASDIRECTED [facility] Last Infusion: 05/23/16 12:56 Dose: 0 mls/hr Magnesium Sulfate 2 gm/ Premix 50 mls @ 25 mls/hr IV Q1H [facility] Stop: 05/22/16 12:29 Last Admin: 05/22/16 12:18 Dose: Not Given Ketorolac Tromethamine (Toradol) 60 mg IVPUSH ONETIME ONE Stop: 05/22/16 08:31 Last Admin: 05/22/16 08:35 Dose: 60 mg Lidocaine HCl (Xylocaine 2% Jelly) 10 ml MUCMEM ONETIME ONE Stop: 05/21/16 13:10 Last Admin: 05/21/16 13:31 Dose: 10 ml Naloxone HCl (Narcan) Confirm Administered Dose 0.4 mg .ROUTE .STK-MED ONE Stop: 05/22/16 06:19 Last Admin: 05/22/16 06:23 Dose: 0.4 mg Naloxone HCl (Narcan) Confirm Administered Dose 0.4 mg .ROUTE .STK-MED ONE Stop: 05/22/16 06:25 Last Admin: 05/22/16 06:57 Dose: 0.4 mg Naloxone HCl (Narcan) 0.4 mg IVPUSH ONETIME ONE Stop: 05/22/16 06:24 Last Admin: 05/22/16 08:59 Dose: Not Given Naloxone HCl (Narcan) 0.4 mg IVPUSH ONETIME ONE Stop: 05/22/16 06:58 Last Admin: 05/22/16 09:01 Dose: Not Given Ondansetron HCl (Zofran) 4 mg IVPUSH ONETIME ONE Stop: 05/21/16 13:19 Last Admin: 05/21/16 13:38 Dose: 4 mg Tamsulosin HCl (Flomax) 0.4 mg PO ONETIME ONE Stop: 05/22/16 18:10 Last Admin: 05/22/16 18:23 Dose: 0.4 mg - Exam Physical Findings Comments:: Vitals: as above General: alert and oriented. NAD Psych: calm and cooperative HEENT: normocephalic, atraumatic. EOMI Cardiac: Normal S1, S2. regular rate. No murmurs rubs, or gallops. No pedal edema. No JVD noted. Lungs: CTAB. good air entry bilaterally. Abd: Soft, ND. No HSM noted. Some tenderness in the abdomen noted, prominent in the left lower quadrant. Some mild guarding noted. There is no rigidity. Skin: no new visible rashes or purpura noted Neuro: CN grossly intact. Strength intact and adequate bilaterally. - Problem List & Annotations (1) Diverticulitis large intestine SNOMED Code(s): 8271836 Code(s): K57.32 - DVTRCLI OF LG INT W/O PERFORATION OR ABSCESS W/O BLEEDING Status: Acute Current Visit: Yes Qualifiers: Diverticulitis bleeding: without bleeding Diverticulitis complication: without perforation or abscess Qualified Code(s): K57.32 - Diverticulitis of large intestine without perforation or abscess without bleeding (2) Urinary retention SNOMED Code(s): 294323337 Code(s): R33.9 - RETENTION OF URINE, UNSPECIFIED Status: Acute Current Visit: Yes (3) Insomnia SNOMED Code(s): 962251968 Code(s): G47.00 - INSOMNIA, UNSPECIFIED Status: Acute Current Visit: Yes Qualifiers: Insomnia type: unspecified Qualified Code(s): G47.00 - Insomnia, unspecified - Problem List Review Problem List Initiated/Reviewed/Updated: Yes - My Orders Last 24 Hours: My Active Orders 05/23/16 12:51 Temazepam [Restoril] 7.5 mg PO BEDTIME PRN 05/23/16 13:00 Dextrose 5%-0.45% NaCl [Dextrose 5%-1/2 NS] 1,000 ml IV ASDIRECTED 05/23/16 Dinner Full Liquid Diet [DIET] 05/24/16 06:00 CRP [C-REACTIVE PROTEIN] [CHEM] Routine - Plan Plan:: Acute diverticulitis. Feels outpatient oral treatment with ciprofloxacin and metronidazole. Patient is being kept on IV antibiotics here, with levofloxacin and metronidazole. His WBC count is markedly improved, however CRP is still elevated. Plan to recheck tomorrow. Continue clear liquid diet today to see if he tolerates this. Urinary retention, s/p estrada - started Flomax. Estrada has been removed, and patient is urinating. 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 Required 2 doses of Narcan to reverse. Avoid narcotics. Treat pain with Toradol as needed. Chronic medical conditions: Hypertension
[2016-05-23] MEDS: Temazepam 7.5 MG Cap PO PRN (20:36)
[2016-05-24] MEDS: LORazepam 2 MG/ML MDV IVPUSH PRN (01:15)
[2016-05-24] MEDS: metroNIDAZOLE/Normal Saline 500 MG in Premix Bag 1 BAG IV SCH ×3 (06:25→21:32)
[2016-05-24] MEDS: Dextrose 5%-0.45% NaCl 1,000 ML IV SCH ×2 (07:05→13:55)
[2016-05-24] MEDS: Enoxaparin 40 MG/0.4 ML Syringe SUBCUT SCH (07:59)
[2016-05-24] MEDS: Tamsulosin 0.4 MG Cap.ER PO SCH ×2 (08:00→18:24)
[2016-05-24] MEDS: Levofloxacin/Dextrose 5%-Water 750 MG in Premix Bag 1 BAG IV SCH (11:10)
[2016-05-24] MEDS: Ondansetron 4 MG/2 ML SDV IVPUSH PRN (11:55)
--- NOTE | 2016-05-24 13:24 | PCM.PN ---
- General Info Date of Service: 05/24/16 Subjective Update: Had another episode of nausea vomiting last night after drinking fluids. He is reluctant to consume anything oral at this time. He slept better last night with the Restoril. - Review of Systems General: Denies: Fever Cardiovascular: Denies: Chest Pain Gastrointestinal: Reports: Abdominal pain, Nausea, Vomiting - Patient Data Vitals - most recent: Last Vital Signs Temp 36.6 C 05/24/16 11:52 Pulse 61 05/24/16 11:52 Resp 18 05/24/16 11:52 BP 129/79 05/24/16 11:52 Pulse Ox 97 05/24/16 11:52 Weight - most recent: 80.195 kg I&O - last 24 hours: Intake & Output 05/23/16 05/24/16 05/24/16 22:59 06:59 14:59 Intake Total 120 1941 Balance 120 1941 Lab Results last 24 hrs: Laboratory Results - last 24 hr 05/24/16 05/24/16 Range/Units 07:10 07:10 WBC 11.55 H (4.23-9.07) K/mm3 RBC 4.02 L (4.63-6.08) M/mm3 Hgb 12.2 L (13.7-17.5) gm/L Hct 35.4 L (40.1-51.0) % MCV 88.1 (79.0-92.2) fl MCH 30.3 (25.7-32.2) pg MCHC 34.5 (32.2-35.5) g/dl RDW Std Deviation 40.5 (35.1-43.9) fL Plt Count 173 (163-337) K/mm3 MPV 10.0 (9.4-12.3) fl Neut % (Auto) 88.6 H (34.0-67.9) % Lymph % (Auto) 4.1 L (21.8-53.1) % [place] % (Auto) 6.9 (5.3-12.2) % Eos % (Auto) 0.3 L (0.8-7.0) Baso % (Auto) 0.0 L (0.1-1.2) % Neut # (Auto) 10.24 H (1.78-5.38) K/mm3 Lymph # (Auto) 0.47 L (1.32-3.57) K/mm3 [place] # (Auto) 0.80 (0.30-0.82) K/mm3 Eos # (Auto) 0.03 L (0.04-0.54) K/mm3 Baso # (Auto) 0.00 L (0.01-0.08) K/mm3 Manual Slide Review Normal smear Sodium 137 (136-145) mEq/L Potassium 3.6 (3.5-5.1) mEq/L Chloride 105 (98-107) mEq/L Carbon Dioxide 24 (21-32) mEq/L Anion Gap 11.6 (5-15) BUN 22 H (7-18) mg/dL Creatinine 1.0 (0.7-1.3) mg/dL Est Cr Clr Drug Dosing 79.76 mL/min Estimated GFR (MDRD) > 60 (>60) mL/min BUN/Creatinine Ratio 22.0 H (14-18) Glucose 145 H (80-115) mg/dL Calcium 7.9 L (8.5-10.1) mg/dL Magnesium 1.9 (1.8-2.4) mg/dl C-Reactive Protein 12.7 H* (<1.0) mg/dL Med Orders - Current: Current Medications Enoxaparin Sodium (Lovenox) 40 mg SUBCUT DAILY [facility] Last Admin: 05/24/16 07:59 Dose: 40 mg Promethazine HCl 12.5 mg/ (Sodium Chloride) 50.5 mls @ 100 mls/hr IV Q6H PRN PRN Reason: Nausea/Vomiting Last Admin: 05/23/16 18:58 Dose: 100 mls/hr Levofloxacin/Dextrose 750 mg/ (Premix) 150 mls @ 100 mls/hr IV Q24H [facility] Last Admin: 05/24/16 11:10 Dose: 100 mls/hr Metronidazole 500 mg/ Premix 100 mls @ 100 mls/hr IV Q8H [facility] Last Admin: 05/24/16 12:03 Dose: 100 mls/hr Dextrose/Sodium Chloride (Dextrose 5%-1/2 Ns) 1,000 mls @ 150 mls/hr IV ASDIRECTED [facility] Last Admin: 05/24/16 07:05 Dose: 150 mls/hr Lorazepam (Ativan) 1 mg IVPUSH BEDTIME PRN PRN Reason: Insomnia Last Admin: 05/24/16 01:15 Dose: 1 mg Ondansetron HCl (Zofran) 4 mg IVPUSH Q8H PRN PRN Reason: Nausea/Vomiting Last Admin: 05/24/16 11:55 Dose: 4 mg Tamsulosin HCl (Flomax) 0.4 mg PO BIDPC [facility] Last Admin: 05/24/16 08:00 Dose: 0.4 mg Temazepam (Restoril) 7.5 mg PO BEDTIME PRN PRN Reason: Sleep Last Admin: 05/23/16 20:36 Dose: 7.5 mg Discontinued Medications Acetaminophen (Tylenol) 975 mg PO NOW ONE Stop: 05/21/16 13:08 Last Admin: 05/21/16 13:23 Dose: 975 mg Hydrocodone Bitart/Acetaminophen ([place] 325-10 Mg) 1 tab PO Q4H PRN PRN Reason: Pain Last Admin: 05/21/16 20:41 Dose: 1 tab Diphtheria/Tetanus/Acell Pertussis (Boostrix) 0.5 ml IM .ONCE ONE Stop: 05/21/16 17:31 Hydromorphone HCl (Dilaudid) 0.5 mg IVPUSH ONETIME ONE Stop: 05/21/16 13:19 Last Admin: 05/21/16 13:35 Dose: 0.5 mg Hydromorphone HCl (Dilaudid) 1 mg IVPUSH Q4H PRN PRN Reason: Pain (moderate 4-6) Last Admin: 05/21/16 17:30 Dose: 1 mg Hydromorphone HCl (Dilaudid) 2 mg IVPUSH Q4H PRN PRN Reason: Pain (moderate 4-6) Last Admin: 05/22/16 04:41 Dose: 2 mg Levofloxacin/Dextrose 750 mg/ (Premix) 150 mls @ 100 mls/hr IV ONETIME ONE Stop: 05/21/16 14:34 Last Admin: 05/21/16 13:57 Dose: 100 mls/hr Sodium Chloride (Normal Saline) 1,000 mls @ 150 mls/hr IV ASDIRECTED [facility] Last Admin: 05/21/16 13:27 Dose: 150 mls/hr Metronidazole 500 mg/ Premix 100 mls @ 100 mls/hr IV ONETIME ONE Stop: 05/21/16 14:05 Last Admin: 05/21/16 15:36 Dose: 100 mls/hr Levofloxacin/Dextrose (Levaquin In D5w 750 Mg/150 Ml) Confirm Administered Dose 150 mls @ as directed IV .STK-MED ONE Stop: 05/21/16 13:16 Last Admin: 05/21/16 14:04 Dose: Not Given Metronidazole (Flagyl 500 Mg In Ns 100 Ml) Confirm Administered Dose 100 mls @ as directed .ROUTE .ST-MED ONE Stop: 05/21/16 15:45 Last Admin: 05/21/16 15:55 Dose: Not Given Sodium Chloride (Sodium Chloride 0.45%) 1,000 mls @ 999 mls/hr IV ASDIRECTED [facility] Last Infusion: 05/22/16 14:58 Dose: Infused Sodium Chloride (Normal Saline) 1,000 mls @ 150 mls/hr IV ASDIRECTED [place] Sodium Chloride (Normal Saline) 1,000 mls @ 150 mls/hr IV ASDIRECTED [facility] Last Infusion: 05/23/16 12:56 Dose: 0 mls/hr Magnesium Sulfate 2 gm/ Premix 50 mls @ 25 mls/hr IV Q1H [facility] Stop: 05/22/16 12:29 Last Admin: 05/22/16 12:18 Dose: Not Given Ketorolac Tromethamine (Toradol) 60 mg IVPUSH ONETIME ONE Stop: 05/22/16 08:31 Last Admin: 05/22/16 08:35 Dose: 60 mg Ketorolac Tromethamine (Toradol) 30 mg IVPUSH Q6H [facility] Stop: 05/23/16 20:31 Last Admin: 05/23/16 20:35 Dose: 30 mg Lidocaine HCl (Xylocaine 2% Jelly) 10 ml MUCMEM ONETIME ONE Stop: 05/21/16 13:10 Last Admin: 05/21/16 13:31 Dose: 10 ml Naloxone HCl (Narcan) Confirm Administered Dose 0.4 mg .ROUTE .STK-MED ONE Stop: 05/22/16 06:19 Last Admin: 05/22/16 06:23 Dose: 0.4 mg Naloxone HCl (Narcan) Confirm Administered Dose 0.4 mg .ROUTE .ST-MED ONE Stop: 05/22/16 06:25 Last Admin: 05/22/16 06:57 Dose: 0.4 mg Naloxone HCl (Narcan) 0.4 mg IVPUSH ONETIME ONE Stop: 05/22/16 06:24 Last Admin: 05/22/16 08:59 Dose: Not Given Naloxone HCl (Narcan) 0.4 mg IVPUSH ONETIME ONE Stop: 05/22/16 06:58 Last Admin: 05/22/16 09:01 Dose: Not Given Ondansetron HCl (Zofran) 4 mg IVPUSH ONETIME ONE Stop: 05/21/16 13:19 Last Admin: 05/21/16 13:38 Dose: 4 mg Tamsulosin HCl (Flomax) 0.4 mg PO ONETIME ONE Stop: 05/22/16 18:10 Last Admin: 05/22/16 18:23 Dose: 0.4 mg - Exam Physical Findings Comments:: Vitals: as above General: alert and oriented. NAD Psych: calm and cooperative HEENT: normocephalic, atraumatic. EOMI Cardiac: Normal S1, S2. regular rate. No murmurs rubs, or gallops. No pedal edema. No JVD noted. Lungs: CTAB. good air entry bilaterally. Abd: Soft, ND. No HSM noted. Some tenderness in the abdomen noted. Some mild guarding noted. There is no rigidity. Skin: no new visible rashes or purpura noted Neuro: CN grossly intact. Strength intact and adequate bilaterally. - Problem List & Annotations (1) Diverticulitis large intestine SNOMED Code(s): 4699535 Code(s): K57.32 - DVTRCLI OF LG INT W/O PERFORATION OR ABSCESS W/O BLEEDING Status: Acute Current Visit: Yes Qualifiers: Diverticulitis bleeding: without bleeding Diverticulitis complication: without perforation or abscess Qualified Code(s): K57.32 - Diverticulitis of large intestine without perforation or abscess without bleeding (2) Urinary retention SNOMED Code(s): 458667081 Code(s): R33.9 - RETENTION OF URINE, UNSPECIFIED Status: Acute Current Visit: Yes (3) Insomnia SNOMED Code(s): 204143299 Code(s): G47.00 - INSOMNIA, UNSPECIFIED Status: Acute Current Visit: Yes Qualifiers: Insomnia type: unspecified Qualified Code(s): G47.00 - Insomnia, unspecified - Problem List Review Problem List Initiated/Reviewed/Updated: Yes - My Orders Last 24 Hours: My Active Orders 05/23/16 12:51 Temazepam [Restoril] 7.5 mg PO BEDTIME PRN 05/23/16 13:00 Dextrose 5%-0.45% NaCl [Dextrose 5%-1/2 NS] 1,000 ml IV ASDIRECTED 05/23/16 Dinner Full Liquid Diet [DIET] 05/24/16 12:42 Discontinue Telemetry Monitoring [Cardiac Monitoring Discontinue] [RC] Click To Edit - Plan Plan:: Acute diverticulitis. Feels outpatient oral treatment with ciprofloxacin and metronidazole. Patient is being kept on IV antibiotics here, with levofloxacin and metronidazole. His WBC count is markedly improved. Continue clear liquid diet today to see if he tolerates this. Urinary retention, s/p estrada - started Flomax. Estrada has been removed, and patient continues to urinate well. 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 Required 2 doses of Narcan to reverse. Avoid narcotics. Treat pain with Toradol as needed. Chronic medical conditions: Hypertension
[2016-05-24] MEDS: Temazepam 7.5 MG Cap PO PRN (21:33)
[2016-05-25] MEDS: metroNIDAZOLE/Normal Saline 500 MG in Premix Bag 1 BAG IV SCH (05:33)
[2016-05-25] MEDS ORDERED: Scopolamine 1.5 MG Transdermal Patch TRDERM PRN (08:49)
[2016-05-25] MEDS ORDERED: REMOVE SCOPALAMINE TRDERM PRN (08:54)
[2016-05-25] MEDS ORDERED: Levofloxacin 750 MG Tab PO SCH (09:00)
[2016-05-25] MEDS: Tamsulosin 0.4 MG Cap.ER PO SCH ×2 (09:34→17:58)
[2016-05-25] MEDS: Enoxaparin 40 MG/0.4 ML Syringe SUBCUT SCH (09:34)
[2016-05-25] MEDS: Saccharomyces Boulardii (Probiotic) 250 MG Cap PO SCH ×2 (09:38→20:00)
[2016-05-25] MEDS: Hydrochlorothiazide 12.5 MG Cap PO SCH (09:38)
[2016-05-25] MEDS: Enalapril 5 MG Tab PO SCH (09:38)
--- NOTE | 2016-05-25 10:49 | PCM.PN ---
- General Info Date of Service: 05/25/16 Admission Dx/Problem (Free Text): Khanh is a 65yo male seen this morning with nurse in room. Was admitted 4 days ago for acute diverticulitis. He had been on levaquin and flagyl IV, full liquid diet up until this morning. He has had fever, low grade overnight. He continues to have intermittent abdominal pain and mild/minimal nausea. He has noted scrotal and penile swelling yesterday and today- improved today. Otherwise he denies complaints of pain currently. He has been up and ambulatory. Functional Status: Reports: pain controlled, tolerating diet (tolerating full liquid diet- is hungry), ambulating, urinating - Review of Systems General: Reports: Fever (low grade overnight), Chills (overnight) HEENT: Reports: no symptoms Pulmonary: Reports: no symptoms. Denies: shortness of breath, cough, wheezing Cardiovascular: Reports: No Symptoms. Denies: Chest Pain, Palpitations, Dyspnea on Exertion, Lightheadedness Gastrointestinal: Reports: Abdominal pain (mild- much improved), Nausea (mild to minimal). Denies: Diarrhea, Vomiting Genitourinary: Reports: other (scrotal swelling- patient states is improved from yesterday) Musculoskeletal: Reports: no symptoms Skin: Reports: no symptoms Neurological: Reports: No Symptoms Psychiatric: Reports: no symptoms - Patient Data Vitals - most recent: Last Vital Signs Temp 100.0 F 05/25/16 08:46 Pulse 57 L 05/25/16 08:46 Resp 16 05/25/16 08:46 BP 138/84 05/25/16 09:38 Pulse Ox 95 05/25/16 08:46 Weight - most recent: 190 lb 8 oz I&O - last 24 hours: Intake & Output 05/24/16 05/25/16 05/25/16 22:59 06:59 14:59 Intake Total 4855 520 210 Balance 4855 520 210 Lab Results last 24 hrs: Laboratory Results - last 24 hr 05/25/16 05/25/16 Range/Units 05:53 05:53 WBC 10.10 H (4.23-9.07) K/mm3 RBC 4.02 L (4.63-6.08) M/mm3 Hgb 12.3 L (13.7-17.5) gm/L Hct 35.5 L (40.1-51.0) % MCV 88.3 (79.0-92.2) fl MCH 30.6 (25.7-32.2) pg MCHC 34.6 (32.2-35.5) g/dl RDW Std Deviation 40.9 (35.1-43.9) fL Plt Count 213 (163-337) K/mm3 MPV 10.5 (9.4-12.3) fl Neut % (Auto) 85.9 H (34.0-67.9) % Lymph % (Auto) 6.6 L (21.8-53.1) % [place] % (Auto) 7.2 (5.3-12.2) % Eos % (Auto) 0.1 L (0.8-7.0) Baso % (Auto) 0.1 (0.1-1.2) % Neut # (Auto) 8.67 H (1.78-5.38) K/mm3 Lymph # (Auto) 0.67 L (1.32-3.57) K/mm3 [place] # (Auto) 0.73 (0.30-0.82) K/mm3 Eos # (Auto) 0.01 L (0.04-0.54) K/mm3 Baso # (Auto) 0.01 (0.01-0.08) K/mm3 Manual Slide Review Abnormal smear Sodium 139 (136-145) mEq/L Potassium 3.6 (3.5-5.1) mEq/L Chloride 108 H (98-107) mEq/L Carbon Dioxide 21 (21-32) mEq/L Anion Gap 13.6 (5-15) BUN 16 (7-18) mg/dL Creatinine 0.9 (0.7-1.3) mg/dL Est Cr Clr Drug Dosing 88.62 mL/min Estimated GFR (MDRD) > 60 (>60) mL/min BUN/Creatinine Ratio 17.8 (14-18) Glucose 113 (80-115) mg/dL Calcium 8.2 L (8.5-10.1) mg/dL Magnesium 1.8 (1.8-2.4) mg/dl C-Reactive Protein 8.1 H* (<1.0) mg/dL Med Orders - Current: Current Medications Enalapril Maleate (Vasotec) 5 mg PO DAILY [facility] Last Admin: 05/25/16 09:38 Dose: 5 mg Enoxaparin Sodium (Lovenox) 40 mg SUBCUT DAILY [facility] Last Admin: 05/25/16 09:34 Dose: 40 mg Hydrochlorothiazide (Hydrochlorothiazide) 12.5 mg PO DAILY [facility] Last Admin: 05/25/16 09:38 Dose: 12.5 mg Promethazine HCl 12.5 mg/ (Sodium Chloride) 50.5 mls @ 100 mls/hr IV Q6H PRN PRN Reason: Nausea/Vomiting Last Admin: 05/23/16 18:58 Dose: 100 mls/hr Levofloxacin (Levaquin) 750 mg PO Q24H [facility] Last Admin: 05/25/16 09:38 Dose: 750 mg Lorazepam (Ativan) 1 mg IVPUSH BEDTIME PRN PRN Reason: Insomnia Last Admin: 05/24/16 01:15 Dose: 1 mg Metronidazole (Flagyl) 500 mg PO Q8H [facility] Miscellaneous Information (Remove Patch) 1 ea TRDERM Q72H PRN PRN Reason: IF PATCH WAS PLACED Ondansetron HCl (Zofran) 4 mg IVPUSH Q8H PRN PRN Reason: Nausea/Vomiting Last Admin: 05/24/16 11:55 Dose: 4 mg Saccharomyces Boulardii (Florastor) 250 mg PO BID [facility] Last Admin: 05/25/16 09:38 Dose: 250 mg Scopolamine (Transderm-Scop) 1.5 mg TRDERM Q72H PRN PRN Reason: Nausea Last Admin: 05/25/16 10:40 Dose: 1.5 mg [facility] Admin: 05/25/16 09:34 Dose: 0.4 mg Temazepam (Restoril) 7.5 mg PO BEDTIME PRN PRN Reason: Sleep Last Admin: 05/24/16 21:33 Dose: 7.5 mg Discontinued Medications Acetaminophen (Tylenol) 975 mg PO NOW ONE Stop: 05/21/16 13:08 Last Admin: 05/21/16 13:23 Dose: 975 mg Hydrocodone Bitart/Acetaminophen ([place] 325-10 Mg) 1 tab PO Q4H PRN PRN Reason: Pain Last Admin: 05/21/16 20:41 Dose: 1 tab Diphtheria/Tetanus/Acell Pertussis (Boostrix) 0.5 ml IM .ONCE ONE Stop: 05/21/16 17:31 Hydromorphone HCl (Dilaudid) 0.5 mg IVPUSH ONETIME ONE Stop: 05/21/16 13:19 Last Admin: 05/21/16 13:35 Dose: 0.5 mg Hydromorphone HCl (Dilaudid) 1 mg IVPUSH Q4H PRN PRN Reason: Pain (moderate 4-6) Last Admin: 05/21/16 17:30 Dose: 1 mg Hydromorphone HCl (Dilaudid) 2 mg IVPUSH Q4H PRN PRN Reason: Pain (moderate 4-6) Last Admin: 05/22/16 04:41 Dose: 2 mg Levofloxacin/Dextrose 750 mg/ (Premix) 150 mls @ 100 mls/hr IV ONETIME ONE Stop: 05/21/16 14:34 Last Admin: 05/21/16 13:57 Dose: 100 mls/hr Sodium Chloride (Normal Saline) 1,000 mls @ 150 mls/hr IV ASDIRECTED [facility] Last Admin: 05/21/16 13:27 Dose: 150 mls/hr Metronidazole 500 mg/ Premix 100 mls @ 100 mls/hr IV ONETIME ONE Stop: 05/21/16 14:05 Last Admin: 05/21/16 15:36 Dose: 100 mls/hr Levofloxacin/Dextrose (Levaquin In D5w 750 Mg/150 Ml) Confirm Administered Dose 150 mls @ as directed IV .STK-MED ONE Stop: 05/21/16 13:16 Last Admin: 05/21/16 14:04 Dose: Not Given Metronidazole (Flagyl 500 Mg In Ns 100 Ml) Confirm Administered Dose 100 mls @ as directed .ROUTE .STK-MED ONE Stop: 05/21/16 15:45 Last Admin: 05/21/16 15:55 Dose: Not Given Levofloxacin/Dextrose 750 mg/ (Premix) 150 mls @ 100 mls/hr IV Q24H [facility] Last Admin: 05/24/16 11:10 Dose: 100 mls/hr Sodium Chloride (Sodium Chloride 0.45%) 1,000 mls @ 999 mls/hr IV ASDIRECTED [facility] Last Infusion: 05/22/16 14:58 Dose: Infused Metronidazole 500 mg/ Premix 100 mls @ 100 mls/hr IV Q8H [facility] Last Admin: 05/25/16 05:33 Dose: 100 mls/hr Sodium Chloride (Normal Saline) 1,000 mls @ 150 mls/hr IV ASDIRECTED [facility] Sodium Chloride (Normal Saline) 1,000 mls @ 150 mls/hr IV ASDIRECTED [facility] Last Infusion: 05/23/16 12:56 Dose: 0 mls/hr Magnesium Sulfate 2 gm/ Premix 50 mls @ 25 mls/hr IV Q1H [facility] Stop: 05/22/16 12:29 Last Admin: 05/22/16 12:18 Dose: Not Given Dextrose/Sodium Chloride (Dextrose 5%-1/2 Ns) 1,000 mls @ 150 mls/hr IV ASDIRECTED [facility] Last Admin: 05/24/16 13:55 Dose: 150 mls/hr Ketorolac Tromethamine (Toradol) 60 mg IVPUSH ONETIME ONE Stop: 05/22/16 08:31 Last Admin: 05/22/16 08:35 Dose: 60 mg Ketorolac Tromethamine (Toradol) 30 mg IVPUSH Q6H [facility] Stop: 05/23/16 20:31 Last Admin: 05/23/16 20:35 Dose: 30 mg Lidocaine HCl (Xylocaine 2% Jelly) 10 ml MUCMEM ONETIME ONE Stop: 05/21/16 13:10 Last Admin: 05/21/16 13:31 Dose: 10 ml Naloxone HCl (Narcan) Confirm Administered Dose 0.4 mg .ROUTE .STK-MED ONE Stop: 05/22/16 06:19 Last Admin: 05/22/16 06:23 Dose: 0.4 mg Naloxone HCl (Narcan) Confirm Administered Dose 0.4 mg .ROUTE .STK-MED ONE Stop: 05/22/16 06:25 Last Admin: 05/22/16 06:57 Dose: 0.4 mg Naloxone HCl (Narcan) 0.4 mg IVPUSH ONETIME ONE Stop: 05/22/16 06:24 Last Admin: 05/22/16 08:59 Dose: Not Given Naloxone HCl (Narcan) 0.4 mg IVPUSH ONETIME ONE Stop: 05/22/16 06:58 Last Admin: 05/22/16 09:01 Dose: Not Given Ondansetron HCl (Zofran) 4 mg IVPUSH ONETIME ONE Stop: 05/21/16 13:19 Last Admin: 05/21/16 13:38 Dose: 4 mg Tamsulosin HCl (Flomax) 0.4 mg PO ONETIME ONE Stop: 05/22/16 18:10 Last Admin: 05/22/16 18:23 Dose: 0.4 mg - Exam Quality Assessment: DVT prophylaxis General: alert, oriented, cooperative, no acute distress HEENT: Pupils equal, Pupils reactive, EOMI, Mucous membr. moist/pink Neck: supple Lungs: Clear to auscultation, Normal respiratory effort Cardiovascular: Regular Rate, Regular Rhythm, No Murmurs Abdomen: bowel sounds present, soft, no distension, tenderness (mild lower abdomen, below umbilicus). No: rigidity, rebound, guarding, organomegaly (Male) Exam: Scrotal swelling (mild edema present; no pain/tenderness to testicles, scrotal sac, no discrete masses noted), Other (mild edema about foreskin). No: Circumcised, Inguinal lymphadenopathy, Penile lesions, Rash, Testicular mass, Testicular tenderness (L), Testicular tenderness (R), Urethral discharge Back Exam: normal inspection Extremities: no edema, no calf tenderness Peripheral Pulses: 1+: dorsalis pedis (L), dorsalis pedis (R) Skin: warm, dry, intact Neurological: no new focal deficit Psy/Mental Status: alert, normal affect, normal mood - Problem List & Annotations (1) Diverticulitis large intestine SNOMED Code(s): 4100226 Code(s): K57.32 - DVTRCLI OF LG INT W/O PERFORATION OR ABSCESS W/O BLEEDING Status: Acute Priority: High Current Visit: Yes Qualifiers: Diverticulitis bleeding: without bleeding Diverticulitis complication: without perforation or abscess Qualified Code(s): K57.32 - Diverticulitis of large intestine without perforation or abscess without bleeding (2) Acute febrile illness SNOMED Code(s): 959580497 Code(s): R50.9 - FEVER, UNSPECIFIED Status: Acute Priority: High Current Visit: Yes - Problem List Review Problem List Initiated/Reviewed/Updated: Yes - My Orders Last 24 Hours: My Active Orders 05/25/16 08:49 Scopolamine [Transderm-Scop] 1.5 mg TRDERM Q72H PRN 05/25/16 08:50 IS (RT) [RT Incentive Spirometry] [RC] Q2HWA Turn, Cough, Deep Breathe [RC] Q2HWA 05/25/16 08:53 Abdomen 2V AP Flat Upright [CR] Routine 05/25/16 08:54 Remove Patch 1 ea TRDERM Q72H PRN 05/25/16 09:00 Enalapril [Vasotec] 5 mg PO DAILY Hydrochlorothiazide 12.5 mg PO DAILY Levofloxacin [Levaquin] 750 mg PO Q24H Saccharomyces Boulardii [Florastor] 250 mg PO BID 05/25/16 10:01 Consult to Food Assembler [CONS] Routine 05/25/16 10:02 Communication Order [RC] ASDIRECTED 05/25/16 13:00 metroNIDAZOLE [Flagyl] 500 mg PO Q8H 05/25/16 Lunch Regular Diet [DIET] - Plan Plan:: Acute diverticulitis. Feels outpatient oral treatment with ciprofloxacin and metronidazole. Patient is being kept on IV antibiotics here, with levofloxacin and metronidazole. His WBC count is markedly improved as is CRP today -IV was incidentally pulled out this am; patient declines restart of IV; will try oral meds and push PO fluids for now- reviewed with him he may need restart of IV if not improving -Advance to regular diet today -Scopolamine patch and reglan PRN for nausea -Abd xray today- no evidence of air fluid levels or obstruction at this time -Continues with low grade temp- tylenol PRN -Florastor BID -Consider repeat abd/pelvis CT if not symptomatically improved/afebrile- r/o abscess Urinary retention, s/p estrada - started Flomax. Estrada has been removed, and patient continues to urinate well. Insomnia-use Restoril as needed- doing well Narcosis from one dose of Dilaudid and Ativan. Required 2 doses of Narcan to reverse. Avoid narcotics. Treat pain with Toradol as needed. Chronic medical conditions: Hypertension- good control; restart home meds Other: GI prophylax DVT prophylax CM/SW for dc planning Dietitian consult for diverticulosis/itis diet review LOS >96 hours as continues with fever, nausea, and slower than expected course of improvement. Likely discharge in next 24-48 hours if continues to slowly improve.
--- NOTE | 2016-05-25 10:57 | CR ---
Abdomen: Supine and upright views of the abdomen were obtained. Sigmoid diverticuli are seen. Small amount of contrast noted within bowel. Mild scoliosis and degenerative change is noted within the spine. Bowel gas pattern appears within normal limits. Impression: 1. Diverticuli within the sigmoid colon. Small amount of contrast noted within the colon. 2. Other incidental findings. Diagnostic code #2
[2016-05-25] MEDS: Famotidine 20 MG Tab PO SCH ×2 (12:39→20:01)
[2016-05-25] MEDS: metroNIDAZOLE 500 MG Tab PO SCH ×2 (12:39→20:00)
[2016-05-25] MEDS: Metoclopramide 5 MG Tab PO SCH ×2 (12:39→17:58)
[2016-05-25] MEDS: Temazepam 7.5 MG Cap PO PRN (20:02)
[2016-05-26] MEDS: Metoclopramide 5 MG Tab PO SCH ×2 (06:04→10:13)
[2016-05-26] MEDS: metroNIDAZOLE 500 MG Tab PO SCH (06:04)
[2016-05-26] MEDS: Enalapril 5 MG Tab PO SCH (08:42)
[2016-05-26] MEDS: Saccharomyces Boulardii (Probiotic) 250 MG Cap PO SCH (08:42)
[2016-05-26] MEDS: Hydrochlorothiazide 12.5 MG Cap PO SCH (08:45)
[2016-05-26] MEDS: Famotidine 20 MG Tab PO SCH (08:45)
[2016-05-26 08:46] VITALS: BP 122/68
[2016-05-26] MEDS: Tamsulosin 0.4 MG Cap.ER PO SCH (08:46)
[2016-05-26] MEDS: Enoxaparin 40 MG/0.4 ML Syringe SUBCUT SCH (08:46)
[2016-05-26] MEDS ORDERED: Amoxicillin/Clavulanate K 875-125 MG Tab PO SCH (09:00)
[2016-05-26] MEDS ORDERED: Furosemide 20 MG Tab PO ONE (10:51)
--- NOTE | 2016-05-26 10:54 | PCM.DCSUM1 ---
Discharge Summary - Hospital Course Free Text/Narrative:: 65 year old male with a history of hypertension, diverticulitis presents with abdominal pain. Recent treated with a five day course of cipro/flagyl for acute diverticulitis. CT of abdomen at [place] revealed acute sigmoid diverticulitis, uncomplicated. Additionally, he has been unable to pass urine today. A estrada catheter has been placed, prior to insertion, >300 cc was documented on bladder scan. Labs: WBC 16.13 (87%, left shift); Crp7.6. Patient was admitted for medical management of acute diverticulitis. He was initially started on IV levaquin and metronidazole, IV fluids. Estrada catheter was discontinued and resumed on flomax. He was urinating without difficulty. Repeat UA was WNL. Labs slowly started to improve. He was ambulatory. Diet was slowly advanced as tolerated. Nausea was treated with antiemetics. Fever was intermittent, antiemetics given PRN. He was transitioned to oral antibiotics, continued to do well with flagyl and augmentin, continued with probiotic. Dietitian was consulted and worked with patient for diverticulitis diet. Patient will be discharged on oral antibiotics as above, flomax and probiotic. He is to follow up with his PCP Dr. Louie within 5-7 days of discharge for recheck, sooner if needed. - Discharge Data Discharge Date: 05/26/16 (admit date 05/21/16) Discharge Disposition: Home, Self-Care 01 Condition: Good - Discharge Diagnosis/Problem(s) (1) Diverticulitis large intestine SNOMED Code(s): 0649868 ICD Code: K57.32 - DVTRCLI OF LG INT W/O PERFORATION OR ABSCESS W/O BLEEDING Status: Acute Priority: High Qualifiers: Diverticulitis bleeding: without bleeding Diverticulitis complication: without perforation or abscess Qualified Code(s): K57.32 - Diverticulitis of large intestine without perforation or abscess without bleeding (2) Acute febrile illness SNOMED Code(s): 512481420 ICD Code: R50.9 - FEVER, UNSPECIFIED Status: Acute Priority: High (3) Urinary retention SNOMED Code(s): 642159958 ICD Code: R33.9 - RETENTION OF URINE, UNSPECIFIED Status: Acute - Patient Summary/Data Operative Procedure(s) Performed: None Complications: None Consults: Consultations 05/21/16 18:58 Consult to Care Management [Consult to Case Management] [CONS] Routine 05/24/16 09:00 Consult to Physical Therapy [PT Evaluation and Treatment] [CONS] Routine 05/24/16 10:00 Consult to Occupational Therapy [OT Evaluation and Treatment] [CONS] Routine 05/25/16 10:01 Consult to Corrosion Prevention Metal Sprayer [CONS] Routine Labs Pending at D/C: None Recommended Follow-up Testing/Procedures: Nursing: please give TDaP prior to pt d/c. Push fluids Continue two antibiotics as instructed Recommend probiotic daily for at least one month Follow up with Dr. Louie within 5-7 days of discharge; labs prior CBC and BMP Diet as reviewed with Dietitian Planned Operative Procedure(s) after DC: None Hospital Course: As above - Patient Instructions Diet: GI Soft/Low Residue/Low Fiber Activity: As Tolerated Driving: May Drive Today Showering/Bathing: May Shower Notify Provider of: Fever, Increased Pain, Nausea and/or Vomiting - Discharge Plan Prescriptions/Med Rec: Amoxicillin/Clavulanate K [Augmentin 875 MG/125 MG] 1 tab PO Q12HR #20 tablet Bifidobacter. Bifidum/B.Longum [Florajen Bifidoblend] 460 mg PO DAILY #30 capsule Hydrochlorothiazide 12.5 mg PO DAILY #30 tablet Tamsulosin [Flomax] 0.4 mg PO BIDPC #60 cap.er metroNIDAZOLE [Flagyl] 500 mg PO Q8H #30 tablet Home Medications: Home Meds Enalapril [Vasotec] 5 mg PO DAILY 05/22/16 [History] Amoxicillin/Clavulanate K [Augmentin 875 MG/125 MG] 1 tab PO Q12HR #20 tablet [Rx] Bifidobacter. Bifidum/B.Longum [Florajen Bifidoblend] 460 mg PO DAILY #30 capsule 05/26/16 [Rx] Hydrochlorothiazide 12.5 mg PO DAILY #30 tablet 05/26/16 [Rx] Tamsulosin [Flomax] 0.4 mg PO BIDPC #60 cap.er 05/26/16 [Rx] metroNIDAZOLE [Flagyl] 500 mg PO Q8H #30 tablet 05/26/16 [Rx] Patient Handouts: Diverticulitis, [id number] Forms: ED Department Discharge Referrals: Maximilian Louie Jr, MD [Primary Care Provider] - - Discharge Summary/Plan Comment DC Time >30 min.: Yes (40 min) - General Info Date of Service: 05/27/16 Admission Dx/Problem (Free Text: Khanh is a 65yo male seen this morning with nurse in room. Was admitted 4 days ago for acute diverticulitis. He had been on levaquin and flagyl IV. He was transitioned to oral abx- augmentin and flagyl yesterday- tolerating well thus far. Diet is advanced and tolerating well. Minimal abd pain this morning. No further nausea. He is moving his bowels. Urinating with minimal difficulty with flomax. He is anxious to be dc'd home today. Functional Status: Reports: pain controlled, tolerating diet, ambulating, urinating. Denies: new symptoms - Review of Systems General: Reports: No Symptoms HEENT: Reports: no symptoms Pulmonary: Reports: no symptoms Cardiovascular: Reports: No Symptoms Gastrointestinal: Reports: Abdominal pain (minimal), Other (moving bowels without difficulty today). Denies: Nausea, Vomiting Genitourinary: Reports: other (scrotal swelling and swelling about foreskin- improved from yesterday) Musculoskeletal: Reports: no symptoms Skin: Reports: no symptoms Neurological: Reports: No Symptoms Psychiatric: Reports: no symptoms - Patient Data Vitals - Most Recent: Last Vital Signs Temp 99.0 F 05/26/16 06:16 Pulse 65 05/26/16 08:45 Resp 18 05/26/16 08:45 BP 122/68 05/26/16 08:45 Pulse Ox 96 05/26/16 08:45 Weight - Most Recent: 188 lb 9.6 oz I&O - Last 24 hours: Intake & Output 05/25/16 05/26/16 05/26/16 22:59 06:59 14:59 Intake Total 700 400 Balance 700 400 Lab Results - Last 24 hrs: Laboratory Results - last 24 hr 05/26/16 05/26/16 Range/Units 07:35 07:35 WBC 11.76 H (4.23-9.07) K/mm3 RBC 4.45 L (4.63-6.08) M/mm3 Hgb 13.5 L (13.7-17.5) gm/L Hct 38.8 L (40.1-51.0) % MCV 87.2 (79.0-92.2) fl MCH 30.3 (25.7-32.2) pg MCHC 34.8 (32.2-35.5) g/dl RDW Std Deviation 41.2 (35.1-43.9) fL Plt Count 260 (163-337) K/mm3 MPV 9.9 (9.4-12.3) fl Neut % (Auto) 81.8 H (34.0-67.9) % Lymph % (Auto) 8.5 L (21.8-53.1) % [place] % (Auto) 8.8 (5.3-12.2) % Eos % (Auto) 0.4 L (0.8-7.0) Baso % (Auto) 0.2 (0.1-1.2) % Neut # (Auto) 9.61 H (1.78-5.38) K/mm3 Lymph # (Auto) 1.00 L (1.32-3.57) K/mm3 [place] # (Auto) 1.04 H (0.30-0.82) K/mm3 Eos # (Auto) 0.05 (0.04-0.54) K/mm3 Baso # (Auto) 0.02 (0.01-0.08) K/mm3 Manual Slide Review Normal smear Sodium 138 (136-145) mEq/L Potassium 3.6 (3.5-5.1) mEq/L Chloride 106 (98-107) mEq/L Carbon Dioxide 22 (21-32) mEq/L Anion Gap 13.6 (5-15) BUN 20 H (7-18) mg/dL Creatinine 0.9 (0.7-1.3) mg/dL Est Cr Clr Drug Dosing 88.62 mL/min Estimated GFR (MDRD) > 60 (>60) mL/min BUN/Creatinine Ratio 22.2 H (14-18) Glucose 105 (80-115) mg/dL Calcium 9.0 (8.5-10.1) mg/dL C-Reactive Protein 6.5 H* (<1.0) mg/dL Med Orders - Current: Current Medications Amoxicillin/Clavulanate Potassium (Augmentin 875 Mg/125 Mg) 1 tab PO Q12HR [facility] Last Admin: 05/26/16 08:42 Dose: 1 tab Enalapril Maleate (Vasotec) 5 mg PO DAILY [facility] Last Admin: 05/26/16 08:42 Dose: 5 mg Enoxaparin Sodium (Lovenox) 40 mg SUBCUT DAILY [facility] Last Admin: 05/26/16 08:46 Dose: 40 mg Famotidine (Pepcid) 20 mg PO BID [facility] Last Admin: 05/26/16 08:45 Dose: 20 mg Hydrochlorothiazide (Hydrochlorothiazide) 12.5 mg PO DAILY [facility] Last Admin: 05/26/16 08:45 Dose: 12.5 mg Promethazine HCl 12.5 mg/ (Sodium Chloride) 50.5 mls @ 100 mls/hr IV Q6H PRN PRN Reason: Nausea/Vomiting Last Admin: 05/23/16 18:58 Dose: 100 mls/hr Lorazepam (Ativan) 1 mg IVPUSH BEDTIME PRN PRN Reason: Insomnia Last Admin: 05/24/16 01:15 Dose: 1 mg Metoclopramide HCl (Reglan) 5 mg PO TIDAC [facility] Last Admin: 05/26/16 10:13 Dose: 5 mg Metronidazole (Flagyl) 500 mg PO Q8H [facility] Last Admin: 05/26/16 06:04 Dose: 500 mg Miscellaneous Information (Remove Patch) 1 ea TRDERM Q72H PRN PRN Reason: IF PATCH WAS PLACED Ondansetron HCl (Zofran) 4 mg IVPUSH Q8H PRN PRN Reason: Nausea/Vomiting Last Admin: 05/24/16 11:55 Dose: 4 mg Saccharomyces Boulardii (Florastor) 250 mg PO BID [facility] Last Admin: 05/26/16 08:42 Dose: 250 mg Scopolamine (Transderm-Scop) 1.5 mg TRDERM Q72H PRN PRN Reason: Nausea Last Admin: 05/25/16 10:40 Dose: 1.5 mg [facility] Admin: 05/26/16 08:46 Dose: 0.4 mg Temazepam (Restoril) 7.5 mg PO BEDTIME PRN PRN Reason: Sleep Last Admin: 05/25/16 20:02 Dose: 7.5 mg Discontinued Medications Acetaminophen (Tylenol) 975 mg PO NOW ONE Stop: 05/21/16 13:08 Last Admin: 05/21/16 13:23 Dose: 975 mg Hydrocodone Bitart/Acetaminophen (Inola 325-10 Mg) 1 tab PO Q4H PRN PRN Reason: Pain Last Admin: 05/21/16 20:41 Dose: 1 tab Diphtheria/Tetanus/Acell Pertussis (Boostrix) 0.5 ml IM .ONCE ONE Stop: 05/21/16 17:31 Hydromorphone HCl (Dilaudid) 0.5 mg IVPUSH ONETIME ONE Stop: 05/21/16 13:19 Last Admin: 05/21/16 13:35 Dose: 0.5 mg Hydromorphone HCl (Dilaudid) 1 mg IVPUSH Q4H PRN PRN Reason: Pain (moderate 4-6) Last Admin: 05/21/16 17:30 Dose: 1 mg Hydromorphone HCl (Dilaudid) 2 mg IVPUSH Q4H PRN PRN Reason: Pain (moderate 4-6) Last Admin: 05/22/16 04:41 Dose: 2 mg Levofloxacin/Dextrose 750 mg/ (Premix) 150 mls @ 100 mls/hr IV ONETIME ONE Stop: 05/21/16 14:34 Last Admin: 05/21/16 13:57 Dose: 100 mls/hr Sodium Chloride (Normal Saline) 1,000 mls @ 150 mls/hr IV ASDIRECTED [facility] Last Admin: 05/21/16 13:27 Dose: 150 mls/hr Metronidazole 500 mg/ Premix 100 mls @ 100 mls/hr IV ONETIME ONE Stop: 05/21/16 14:05 Last Admin: 05/21/16 15:36 Dose: 100 mls/hr Levofloxacin/Dextrose (Levaquin In D5w 750 Mg/150 Ml) Confirm Administered Dose 150 mls @ as directed IV .STK-MED ONE Stop: 05/21/16 13:16 Last Admin: 05/21/16 14:04 Dose: Not Given Metronidazole (Flagyl 500 Mg In Ns 100 Ml) Confirm Administered Dose 100 mls @ as directed .ROUTE .STK-MED ONE Stop: 05/21/16 15:45 Last Admin: 05/21/16 15:55 Dose: Not Given Levofloxacin/Dextrose 750 mg/ (Premix) 150 mls @ 100 mls/hr IV Q24H [facility] Last Admin: 05/24/16 11:10 Dose: 100 mls/hr Sodium Chloride (Sodium Chloride 0.45%) 1,000 mls @ 999 mls/hr IV ASDIRECTED [facility] Last Infusion: 05/22/16 14:58 Dose: Infused Metronidazole 500 mg/ Premix 100 mls @ 100 mls/hr IV Q8H [facility] Last Admin: 05/25/16 05:33 Dose: 100 mls/hr Sodium Chloride (Normal Saline) 1,000 mls @ 150 mls/hr IV ASDIRECTED [facility] Sodium Chloride (Normal Saline) 1,000 mls @ 150 mls/hr IV ASDIRECTED [facility] Last Infusion: 05/23/16 12:56 Dose: 0 mls/hr Magnesium Sulfate 2 gm/ Premix 50 mls @ 25 mls/hr IV Q1H [facility] Stop: 05/22/16 12:29 Last Admin: 05/22/16 12:18 Dose: Not Given Dextrose/Sodium Chloride (Dextrose 5%-1/2 Ns) 1,000 mls @ 150 mls/hr IV ASDIRECTED [facility] Last Admin: 05/24/16 13:55 Dose: 150 mls/hr Ketorolac Tromethamine (Toradol) 60 mg IVPUSH ONETIME ONE Stop: 05/22/16 08:31 Last Admin: 05/22/16 08:35 Dose: 60 mg Ketorolac Tromethamine (Toradol) 30 mg IVPUSH Q6H [facility] Stop: 05/23/16 20:31 Last Admin: 05/23/16 20:35 Dose: 30 mg Levofloxacin (Levaquin) 750 mg PO Q24H [facility] Last Admin: 05/25/16 09:38 Dose: 750 mg Lidocaine HCl (Xylocaine 2% Jelly) 10 ml MUCMEM ONETIME ONE Stop: 05/21/16 13:10 Last Admin: 05/21/16 13:31 Dose: 10 ml Naloxone HCl (Narcan) Confirm Administered Dose 0.4 mg .ROUTE .STK-MED ONE Stop: 05/22/16 06:19 Last Admin: 05/22/16 06:23 Dose: 0.4 mg Naloxone HCl (Narcan) Confirm Administered Dose 0.4 mg .ROUTE .STK-MED ONE Stop: 05/22/16 06:25 Last Admin: 05/22/16 06:57 Dose: 0.4 mg Naloxone HCl (Narcan) 0.4 mg IVPUSH ONETIME ONE Stop: 05/22/16 06:24 Last Admin: 05/22/16 08:59 Dose: Not Given Naloxone HCl (Narcan) 0.4 mg IVPUSH ONETIME ONE Stop: 05/22/16 06:58 Last Admin: 05/22/16 09:01 Dose: Not Given Ondansetron HCl (Zofran) 4 mg IVPUSH ONETIME ONE Stop: 05/21/16 13:19 Last Admin: 05/21/16 13:38 Dose: 4 mg Tamsulosin HCl (Flomax) 0.4 mg PO ONETIME ONE Stop: 05/22/16 18:10 Last Admin: 05/22/16 18:23 Dose: 0.4 mg - Exam Quality Assessment: Reports: DVT prophylaxis General: Reports: alert, oriented, cooperative, no acute distress HEENT: Reports: Pupils equal, Pupils reactive, EOMI, Mucous membr. moist/pink Neck: Reports: supple Lungs: Reports: Clear to auscultation, Normal respiratory effort Cardiovascular: Reports: Regular Rate, Regular Rhythm Abdomen: Reports: bowel sounds present, soft, no distension, tenderness ( minimal to suprapubic/LLQ) (Male) Exam: No hernia, Scrotal swelling (bilateral; improved from yesterday) , Other (swelling about foreskin, edematous). No: Circumcised, Rash, Scrotum tenderness (L), Scrotum tenderness (R) Rectal (Males) Exam: Deferred Extremities: Reports: edema (trace to feet/ankles bilat) Skin: Reports: warm, dry, intact Neurological: Reports: no new focal deficit Psy/Mental Status: Reports: alert, normal affect, normal mood *Q Meaningful Use (DIS) - VTE *Q VTE Criteria *Q: - Stroke *Q Stroke Criteria *Q: - AMI *Q AMI Criteria *Q:
== END 2016-05-26 12:35 | disposition home or self-care (01) | DRG 392 ==
LOC: JD.ED 12:51 → JD.MS 15:11 → JD.ICU 05-22 10:11 → JD.MS 05-24 11:34
PROVIDERS: ADMIT Internal Medicine Cardiovascular Disease; ATTEND Internal Medicine Cardiovascular Disease
PROC: 0T9B70Z Drainage of Bladder with Drainage Device, Via Natural or Artificial Opening (ICD-10-PCS; principal; 2016-05-21)
DX: K57.32 Diverticulitis of large intestine without perforation or abscess without bleeding (principal); I10 Essential (primary) hypertension; Z85.828 Personal history of other malignant neoplasm of skin; R50.9 Fever, unspecified; R33.9 Retention of urine, unspecified; G47.00 Insomnia, unspecified; Y92.230 Patient room in hospital as the place of occurrence of the external cause; T42.4X5A Adverse effect of benzodiazepines, initial encounter; R06.89 Other abnormalities of breathing
CPT/HCPCS: 36415; 51702; 51798; 80053; 81001; 85025; 86140; 87040 ×2; 96361; 96365; 96366; 96375; 99285; A9270; J1170; J1956; J2405; J7040; 74020; 74020-26; 80048; 80061; 83605; 83735; 90471; 90715; 96367; 97161-GP; 97165-GO; J1650; J1885; J2060; J2310; J2550; J3475; J7030; J7042; J7050

== ENCOUNTER 2016-05-28 09:45 | Emergency (ER) | payer MEDICARE, OTHER ==
[2016-05-28 09:58] VITALS: BP 98/66
[2016-05-28] MEDS ORDERED: Aspirin 81 MG Tab.Chew PO ONE (11:36)
[2016-05-28] MEDS ORDERED: Iopamidol 755 Mg/ML 100 ML Bottle IVPUSH ONE ×2 (11:45)
[2016-05-28] MEDS ORDERED: Sodium Chloride 0.9% 10 ML Syringe FLUSH ONE (11:45)
[2016-05-28] MEDS ORDERED: Sodium Chloride 0.9% 100 ML IV SCH (11:45)
--- NOTE | 2016-05-28 11:47 | CR ---
Chest: Two views of the chest were obtained. Comparison: No previous chest x-ray. Blunting of the lateral and posterior costophrenic angle is seen likely representing small pleural effusion. Lungs otherwise are clear. Heart size is normal. Mild tortuosity of the thoracic aorta is seen. Degenerative spurring is noted within the spine. Diaphragms are flattened on the lateral view suggesting emphysematous change. Impression: 1. Emphysematous change. 2. Possible small left-sided pleural effusion. Diagnostic code #2
--- NOTE | 2016-05-28 12:37 | EDM.PDOC ---
ED HISTORY OF PRESENT ILLNESS - General Chief Complaint: Cardiovascular Problem Stated Complaint: [facility] Time Seen by Provider: 05/28/16 10:04 Source of Information: Reports: Patient, EMS History Limitations: Reports: No limitations - History of Present Illness INITIAL COMMENTS - FREE TEXT/NARRATIVE: The patient was admitted 1 week ago for diverticulitis. He was discharged from our hospital 2 days ago. He is on flagyl and augmentin. Last night he got up to go to the bathroom and he got lightheaded and fell. He did not hit his head or hurt his neck. He was also short of breath at that time. He said this morning he did not feel right again. He was short of breath and he is in good shape. He also was lightheaded. He denies any chest pain. He has no fever, chills, cough, congestion or runny nose. He has no abdominal pain any more. He has no nausea or vomiting. He has been eating a lot better. When he was admitted, he had some urinary retention. He also had slowed his breathing when he was in the hospital. He also had edema from the IV fluids. That is better. He still has edema in his calfs with the right being larger then his left. He has no history of DVT or PE. Timing/Duration: Reports: Day(s): (Last night) Severity: moderate Improves with: Reports: None Worsens with: Reports: None Associated Symptoms (General): Reports: shortness of breath. Denies: chest pain , cough, fever/chills, nausea/vomiting - Related Data Allergies/ADRs: Allergies Allergy/AdvReac Type Severity Reaction Status Date / Time No Known Allergies Allergy Verified 05/28/16 10:00 Home Meds: Home Meds Enalapril [Vasotec] 5 mg PO DAILY 05/22/16 [History] Amoxicillin/Clavulanate K [Augmentin 875 MG/125 MG] 1 tab PO Q12HR #20 tablet [Rx] Bifidobacter. Bifidum/B.Longum [Florajen Bifidoblend] 460 mg PO DAILY #30 capsule 05/26/16 [Rx] Hydrochlorothiazide 12.5 mg PO DAILY #30 tablet 05/26/16 [Rx] Tamsulosin [Flomax] 0.4 mg PO BIDPC #60 cap.er 05/26/16 [Rx] metroNIDAZOLE [Flagyl] 500 mg PO Q8H #30 tablet 05/26/16 [Rx] Past Medical History Cardiovascular History: Reports: Hypertension Gastrointestinal History: Reports: Diverticulosis Genitourinary History: Reports: Retention, urinary Neurological History: Reports: Vertigo Other Neuro History: about 20 years ago Oncologic (Cancer) History: Reports: Basal cell carcinoma Other Oncologic History: PT. had patch of cancer removed off of his ear, aprox. 15-20 years, and a spot on his arm aprox. 1 year ago. - Infectious Disease History Infectious Disease History: Reports: Chicken pox, Measles, Mumps - Past Surgical History Cardiovascular Surgical History: Reports: None GI Surgical History: Reports: None Neurological Surgical History: Reports: None Oncologic Surgical History: Reports: None Social & Family History - Family History Family Medical History: Noncontributory - Tobacco Use Smoking Status *Q: Never Smoker Second Hand Smoke Exposure: No - Caffeine Use Caffeine Use: Reports: None Other Caffeine Use: 1 cup, - Recreational Drug Use Recreational Drug Use: No - Living Situation & Occupation Living situation: Reports: Occupation: employed (Self-employed [employer] ED ROS GENERAL - Review of Systems Review Of Systems: See Below Constitutional: Reports: no symptoms HEENT: Reports: No symptoms Respiratory: Reports: Shortness of Breath Cardiovascular: Reports: Lightheadedness, Syncope. Denies: Chest pain Endocrine: Reports: no symptoms GI/Abdominal: Reports: No symptoms : Reports: no symptoms Musculoskeletal: Reports: no symptoms ED EXAM, GENERAL - Physical Exam Exam: See Below Exam Limited By: No limitations General Appearance: alert, no apparent distress Ears: normal external exam Nose: normal inspection Throat/Mouth: Normal inspection Head: atraumatic, normocephalic Neck: normal inspection Respiratory/Chest: no respiratory distress, lungs clear, normal breath sounds Cardiovascular: regular rate, rhythm, no murmur, other (Bilateral lower leg edema. Right worse then left) GI/Abdominal: soft, non tender, no organomegaly, no mass Extremities: leg pain (Right worse then left) Neurological: alert, oriented, no motor/sensory deficits EKG INTERPRETATION EKG Date: 05/28/16 Time: 10:30 Rhythm: NSR Rate (beats/min): 65 [place]: normal P-wave: present QRS: normal ST-T: normal QT: normal Course - Vital Signs Last Recorded V/S: Last Vital Signs Temp 97.9 F 05/28/16 09:55 Pulse 76 05/28/16 09:55 Resp 18 05/28/16 09:55 BP 98/66 05/28/16 09:55 Pulse Ox 100 05/28/16 09:55 Orthostatic Blood Pressure [ 90/58 Standing] Orthostatic Blood Pressure [ 95/59 Supine] - Orders/Labs/Meds Orders: Active Orders 24 hr Category Date Time Status Cardiac Monitoring [RC] . DIRECTED Care 05/28/16 10:18 Active Cardiac Monitoring [RC] . DIRECTED Care 05/28/16 10:18 Active EKG Documentation Completion [RC] STAT Care 05/28/16 10:19 Active Ang Chest [CT] Stat Exams 05/28/16 11:36 Taken B-TYPE NATRIURETIC PEPTIDE,BNP [CHEM] Stat Lab 05/28/16 13:07 Ordered Furosemide [Lasix] Med 05/28/16 13:16 Once 40 mg IVPUSH NOW ONE Sodium Chloride 0.9% [Normal Saline] 100 ml Med 05/28/16 11:45 Active IV ASDIRECTED Medication Orders Sodium Chloride (Normal Saline) 100 mls @ 60 mls/hr IV ASDIRECTED MONSERRAT Last Admin: 05/28/16 12:14 Dose: 60 mls/hr Labs: Laboratory Tests 05/28/16 05/28/16 05/28/16 Range/Units 10:05 10:50 10:50 WBC 11.89 H (4.23-9.07) K/mm3 RBC 4.53 L (4.63-6.08) M/mm3 Hgb 13.7 (13.7-17.5) gm/L Hct 39.3 L (40.1-51.0) % MCV 86.8 (79.0-92.2) fl MCH 30.2 (25.7-32.2) pg MCHC 34.9 (32.2-35.5) g/dl RDW Std Deviation 40.6 (35.1-43.9) fL Plt Count 303 (163-337) K/mm3 MPV 9.4 (9.4-12.3) fl Neut % (Auto) 75.2 H (34.0-67.9) % Lymph % (Auto) 10.7 L (21.8-53.1) % [place] % (Auto) 12.4 H (5.3-12.2) % Eos % (Auto) 0.6 L (0.8-7.0) Baso % (Auto) 0.4 (0.1-1.2) % Neut # (Auto) 8.94 H (1.78-5.38) K/mm3 Lymph # (Auto) 1.27 L (1.32-3.57) K/mm3 [place] # (Auto) 1.48 H (0.30-0.82) K/mm3 Eos # (Auto) 0.07 (0.04-0.54) K/mm3 Baso # (Auto) 0.05 (0.01-0.08) K/mm3 Manual Slide Review Abnormal smear D-Dimer, Quantitative 4.11 H (0.19-0.59) mg/L Sodium (136-145) mEq/L Potassium (3.5-5.1) mEq/L Chloride (98-107) mEq/L Carbon Dioxide (21-32) mEq/L Anion Gap (5-15) BUN (7-18) mg/dL Creatinine (0.7-1.3) mg/dL Est Cr Clr Drug Dosing mL/min Estimated GFR (MDRD) (>60) mL/min BUN/Creatinine Ratio (14-18) Glucose (80-115) mg/dL Calcium (8.5-10.1) mg/dL Total Bilirubin (0.2-1.0) mg/dL AST (15-37) U/L ALT (16-63) U/L Alkaline Phosphatase (46-116) U/L Troponin I (0.00-0.056) ng/mL Total Protein (6.4-8.2) g/dl Albumin (3.4-5.0) g/dl Globulin gm/dL Albumin/Globulin Ratio (1-2) Urine Color Yellow (Yellow) Urine Appearance Clear (Clear) Urine pH 8.5 H (5.0-8.0) Ur Specific [place] 1.015 (1.005-1.030) Urine Protein Trace H (Negative) Urine Glucose (UA) Negative (Negative) Urine Ketones Negative (Negative) Urine Occult Blood Negative (Negative) Urine Nitrite Negative (Negative) Urine Bilirubin Negative (Negative) Urine Urobilinogen 0.2 (0.2-1.0) Ur Leukocyte Esterase Negative (Negative) Urine RBC 0-5 (0-5) /hpf Urine WBC 0-5 (0-5) /hpf Ur Epithelial Cells Not seen (0-5) /hpf Urine Bacteria Not seen (FEW) /hpf Hyaline Casts 0-5 (0-5) /lpf Urine Mucus Few (FEW) /hpf 05/28/16 Range/Units 10:50 WBC (4.23-9.07) K/mm3 RBC (4.63-6.08) M/mm3 Hgb (13.7-17.5) gm/L Hct (40.1-51.0) % MCV (79.0-92.2) fl MCH (25.7-32.2) pg MCHC (32.2-35.5) g/dl RDW Std Deviation (35.1-43.9) fL Plt Count (163-337) K/mm3 MPV (9.4-12.3) fl Neut % (Auto) (34.0-67.9) % Lymph % (Auto) (21.8-53.1) % [place] % (Auto) (5.3-12.2) % Eos % (Auto) (0.8-7.0) Baso % (Auto) (0.1-1.2) % Neut # (Auto) (1.78-5.38) K/mm3 Lymph # (Auto) (1.32-3.57) K/mm3 [place] # (Auto) (0.30-0.82) K/mm3 Eos # (Auto) (0.04-0.54) K/mm3 Baso # (Auto) (0.01-0.08) K/mm3 Manual Slide Review D-Dimer, Quantitative (0.19-0.59) mg/L Sodium 140 (136-145) mEq/L Potassium 3.1 L (3.5-5.1) mEq/L Chloride 106 (98-107) mEq/L Carbon Dioxide 24 (21-32) mEq/L Anion Gap 13.1 (5-15) BUN 15 (7-18) mg/dL Creatinine 1.1 (0.7-1.3) mg/dL Est Cr Clr Drug Dosing 74.17 mL/min Estimated GFR (MDRD) > 60 (>60) mL/min BUN/Creatinine Ratio 13.6 L (14-18) Glucose 135 H (80-115) mg/dL Calcium 9.6 (8.5-10.1) mg/dL Total Bilirubin 0.5 (0.2-1.0) mg/dL AST 24 (15-37) U/L ALT 37 (16-63) U/L Alkaline Phosphatase 69 (46-116) U/L Troponin I 0.112 H* (0.00-0.056) ng/mL Total Protein 5.5 L (6.4-8.2) g/dl Albumin 2.6 L (3.4-5.0) g/dl Globulin 2.9 gm/dL Albumin/Globulin Ratio 0.9 L (1-2) Urine Color (Yellow) Urine Appearance (Clear) Urine pH (5.0-8.0) Ur Specific [place] (1.005-1.030) Urine Protein (Negative) Urine Glucose (UA) (Negative) Urine Ketones (Negative) Urine Occult Blood (Negative) Urine Nitrite (Negative) Urine Bilirubin (Negative) Urine Urobilinogen (0.2-1.0) Ur Leukocyte Esterase (Negative) Urine RBC (0-5) /hpf Urine WBC (0-5) /hpf Ur Epithelial Cells (0-5) /hpf Urine Bacteria (FEW) /hpf Hyaline Casts (0-5) /lpf Urine Mucus (FEW) /hpf Meds: Medications Generic Name Dose Route Start Last Admin Trade Name Freq PRN Reason Stop Dose Admin Sodium Chloride 100 mls @ 60 mls/hr 05/28/16 11:45 05/28/16 12:14 Normal Saline IV 60 mls/hr ASDIRECTED MONSERRAT Administration Discontinued Medications Generic Name Dose Route Start Last Admin Trade Name Freq PRN Reason Stop Dose Admin Aspirin 324 mg 05/28/16 11:36 05/28/16 11:42 Aspirin PO 05/28/16 11:37 324 mg ONETIME ONE Administration Furosemide 20 mg 05/28/16 13:08 Lasix IVPUSH 05/28/16 13:09 ONETIME ONE Iopamidol 100 ml 05/28/16 11:45 05/28/16 12:14 Isovue-370 (76%) IVPUSH 05/28/16 11:46 100 ml ONETIME ONE Administration Iopamidol 40 ml 05/28/16 11:45 05/28/16 12:14 Isovue-370 (76%) IVPUSH 05/28/16 11:46 40 ml ONETIME ONE Administration Sodium Chloride 10 ml 05/28/16 11:45 05/28/16 12:14 Saline Flush FLUSH 05/28/16 11:46 10 ml ONETIME ONE Administration - Re-Assessments/Exams Free Text/Narrative Re-Assessment/Exam: 05/28/16 12:39 The patient did not want an IV. I ordered an EKG, CXR and labs. His EKG shows a NSR with no acute changes. His CXR shows emphysematus change and possible small left-sided pleural effusion. 05/28/16 12:41 His WBC is elevated at 11.89. His D-dimer is elevated at 4.11. His K was a little low at 3.1. Her glucose was elevated at 135. Her troponin was elevated at 0.112. I gave him an aspirin and did a CT angio of his chest. The CT shows no evidence of pulmonary embolus to the segmental leve, no aortic aneurysm, mild bilateral pleural effusions, mild opacities in the lower lobes may represent atelectasis or pneumonia, possible mild dilatation of the left collecting system. 05/28/16 13:17 He is having a nonSTEMI. He is pain free now. I called [facility] in [place] and talked to Dr Rayo the hospitalist and she accepted the patient. She did recommend getting a BNP and give him some lasix. Departure - Departure Time of Disposition: 13:20 Disposition: DC/Tfer to Acute Hospital 02 Reason for Transfer *Q: Other Condition: fair Clinical Impression: Non-STEMI (non-ST elevated myocardial infarction) Diverticulitis large intestine Qualifiers: Diverticulitis bleeding: without bleeding Diverticulitis complication: without perforation or abscess Qualified Code(s): K57.32 - Diverticulitis of large intestine without perforation or abscess without bleeding Syncope Qualifiers: Syncope type: unspecified Qualified Code(s): R55 - Syncope and collapse Forms: ED Department Discharge - My Orders Last 24 Hours: My Active Orders 05/28/16 10:18 Cardiac Monitoring [RC] . DIRECTED Cardiac Monitoring [RC] . DIRECTED 05/28/16 10:19 EKG Documentation Completion [RC] STAT 05/28/16 11:36 Ang Chest [CT] Stat 05/28/16 11:45 Sodium Chloride 0.9% [Normal Saline] 100 ml IV ASDIRECTED 05/28/16 13:07 B-TYPE NATRIURETIC PEPTIDE,BNP [CHEM] Stat 05/28/16 13:16 Furosemide [Lasix] 40 mg IVPUSH NOW ONE - Assessment/Plan Last 24 Hours: My Active Orders 05/28/16 10:18 Cardiac Monitoring [RC] . DIRECTED Cardiac Monitoring [RC] . DIRECTED 05/28/16 10:19 EKG Documentation Completion [RC] STAT 05/28/16 11:36 Ang Chest [CT] Stat 05/28/16 11:45 Sodium Chloride 0.9% [Normal Saline] 100 ml IV ASDIRECTED 05/28/16 13:07 B-TYPE NATRIURETIC PEPTIDE,BNP [CHEM] Stat 05/28/16 13:16 Furosemide [Lasix] 40 mg IVPUSH NOW ONE
[2016-05-28] MEDS ORDERED: Furosemide 20 MG/2 ML VIAL IVPUSH ONE (13:08)
[2016-05-28] MEDS ORDERED: Furosemide 40 MG/4 ML VIAL IVPUSH ONE (13:16)
--- NOTE | 2016-05-30 16:20 | CT ---
CT chest Technique: Multiple axial sections through the chest were obtained. Intravenous contrast was utilized. Study has been performed as a pulmonary angiogram protocol. Comparison: Previous chest x-ray performed earlier the same day. Findings: Pulmonary arteries are well-opacified. No filling defects are seen to indicate pulmonary embolism. Mediastinum and hilar regions show no adenopathy or mass. Aorta has a slightly ectatic ascending aorta with AP dimension of 3.7 cm. No pericardial thickening is seen. Small bilateral pleural effusions are noted. Increased parenchymal density within both lung bases, worse on the left side most likely due to atelectasis and less likely due to pneumonia. Lungs otherwise are clear. Partially visualized collecting system of left kidney is seen difficult to exclude mild left-sided hydronephrosis, this is not a definite finding since this is not completely seen on this exam. Scattered degenerative endplate spurring is seen within the spine. Impression: 1. No findings of pulmonary embolus. 2. Small bilateral pleural effusions and mild increased parenchymal density within both lung bases most likely representing atelectasis. 3. Other incidental findings as noted above. Diagnostic code #3 Agree with preliminary report issued by [employer] (preliminary [employer] report dictated on 05/28/16, 1:40 PM Central)
== END 2016-05-28 13:47 ==
LOC: JD.ED 09:45
DX: K57.32 Diverticulitis of large intestine without perforation or abscess without bleeding (principal); I21.4 Non-ST elevation (NSTEMI) myocardial infarction; R55 Syncope and collapse; I10 Essential (primary) hypertension; Z79.899 Other long term (current) drug therapy
CPT/HCPCS: 36415; 71020; 71275; 80053; 81001; 83880; 84484; 85025; 85379; 93005; 96374; 99285; A9270; J1940; J7030; J7050; Q9967

== ENCOUNTER 2019-11-01 20:33 | Emergency (ER) | payer MEDICARE, OTHER ==
--- NOTE | 2019-11-01 21:20 | EDM.PDOC ---
ED HPI GENERAL MEDICAL PROBLEM - General Chief Complaint: Abdominal Pain Stated Complaint: LOWER ABDOMINAL PAIN/FEVER Time Seen by Provider: 11/01/19 20:52 Source of Information: Reports: Patient History Limitations: Reports: No Limitations - History of Present Illness INITIAL COMMENTS - FREE TEXT/NARRATIVE: Mr. Haile is a very pleasant 68-year-old gentleman with a past medical history significant for diverticulitis in April 2016, who now presents to the ED stating that he developed lower abdominal pain around 14:00 this afternoon. He states that his pain is felt in his midline lower/suprapubic area. He describes the character of the pain as "like a headache" and "steady". He has not identified any modifiers. He states that his current pain is similar to his previous diverticulitis. The patient states that when he initially had the pain, he was unable to urinate, but he has since been able to, however, he notices that his urine flow is decreased. He denies dysuria. No associated nausea, vomiting or constipation, however, he states that he did have a loose non-bloody bowel movement this afternoon. The patient did not take any [id number] or home remedies prior to coming to the ED. He last ate around 19:15. Here in the ED, the patient's initial BP is found to be mildly elevated at 142/79, otherwise, he is hemodynamically stable, afebrile, saturating 93% on room air. Other than today's lower abdominal pain, the patient denies having a recent fever, chills, sore throat, ear pain, nasal or sinus congestion, cough, dyspnea, chest pain, palpitations, nausea, vomiting, constipation, diarrhea, urinary symptoms, recent weight gain or weight loss, recent bloody bowel movements or black bowel movements, recent joint aches, headaches, or rashes. The patient's PCP is Dr. Maximilian Louie. Lower Abdomen Pain Score (Numeric/FACES): 1 - Related Data Allergies Allergy/AdvReac Type Severity Reaction Status Date / Time No Known Allergies Allergy Verified 11/01/19 20:46 Home Meds: Home Meds Hydrochlorothiazide 12.5 mg PO DAILY #30 tablet 05/26/16 [Rx] Levofloxacin 1 tab PO QPM #6 tablet 11/01/19 [Rx] metroNIDAZOLE [Metronidazole] 1 tab PO Q8H #20 tablet 11/01/19 [Rx] Past Medical History Cardiovascular History: Reports: Hypertension Gastrointestinal History: Reports: Diverticulosis (diverticulitis) Genitourinary History: Reports: Retention, Urinary Oncologic (Cancer) History: Reports: Basal Cell Carcinoma (right ear) - Infectious Disease History Infectious Disease History: Reports: Chicken Pox, Measles, Mumps - Past Surgical History HEENT Surgical History: Reports: Oral Surgery (wisdom teeth extraction) Oncologic Surgical History: Reports: Other (See Below) (BCC excised off right ear) Social & Family History - Family History Family Medical History: Noncontributory - Tobacco Use Smoking Status *Q: Never Smoker Second Hand Smoke Exposure: No - Caffeine Use Caffeine Use: Reports: Coffee, Soda Other Caffeine Use: 1 cup, - Alcohol Use Alcohol Use History: Yes Alcohol Use Frequency: Rarely - Recreational Drug Use Recreational Drug Use: No - Living Situation & Occupation Living situation: Reports: , , Alone 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 ED EXAM, GI/ABD - Physical Exam Exam: See Below Exam Limited By: No Limitations General Appearance: Alert, WD/WN, No Apparent Distress Eyes: Bilateral: Normal Appearance, EOMI Ears: Normal External Exam, Hearing Loss Nose: Normal Inspection Throat/Mouth: Normal Voice, No Airway Compromise, Other (Patient wearing a surgical mask) Head: Atraumatic, Normocephalic Neck: Normal Inspection, Full Range of Motion Respiratory/Chest: No Respiratory Distress, Lungs Clear, Normal Breath Sounds, No Accessory Muscle Use Cardiovascular: Normal Peripheral Pulses, Regular Rate, Rhythm, No Edema, No Gallop, No JVD, No Murmur, No Rub GI/Abdominal Exam: Normal Bowel Sounds, Soft, No Organomegaly, No Distention, No Abnormal Bruit, No Mass, Tender (Lower abdomen only. Nontender to the upper abdomen.) (Male) Exam: Deferred Rectal (Males) Exam: Deferred Back Exam: Normal Inspection, Full Range of Motion. No: CVA Tenderness (L), CVA Tenderness (R) Extremities: Normal Inspection, Normal Range of Motion, No Pedal Edema, Normal Capillary Refill Neurological: Alert, Oriented, Normal Cognition, No Motor/Sensory Deficits Psychiatric: Normal Affect Skin Exam: Warm, Dry, Intact, Normal Color, No Rash Course - Vital Signs Last Recorded V/S: Last Vital Signs Temp 37.2 C 11/02/19 00:15 Pulse 80 11/02/19 00:15 Resp 18 11/02/19 00:15 BP 135/72 11/02/19 00:15 Pulse Ox 94 L 11/02/19 00:15 - Orders/Labs/Meds Orders: Active Orders 24 hr Category Date Time Status Abdomen Pelvis w Cont [CT] Stat Exams 11/01/19 21:16 Taken Labs: Laboratory Tests 11/01/19 11/01/19 11/01/19 Range/Units 21:30 21:30 23:00 WBC 16.93 H (4.23-9.07) K/mm3 RBC 5.13 (4.63-6.08) M/mm3 Hgb 15.6 D (13.7-17.5) gm/dl Hct 45.2 (40.1-51.0) % MCV 88.1 (79.0-92.2) fl MCH 30.4 (25.7-32.2) pg MCHC 34.5 (32.2-35.5) g/dl RDW Std Deviation 41.6 (35.1-43.9) fL Plt Count 250 (163-337) K/mm3 MPV 10.2 (9.4-12.3) fl Neutrophils % (Manual) 86 H (40-60) % Band Neutrophils % 1 (0-10) % Lymphocytes % (Manual) 10 L (20-40) % Atypical Lymphs % 0 % Monocytes % (Manual) 3 (2-10) % Eosinophils % (Manual) 0 L (0.8-7.0) % Basophils % (Manual) 0 L (0.2-1.2) Platelet Estimate Adequate Plt Morphology Comment Normal RBC Morph Comment Normal Sodium 136 (136-145) mEq/L Potassium 3.6 (3.5-5.1) mEq/L Chloride 101 (98-107) mEq/L Carbon Dioxide 24 (21-32) mEq/L Anion Gap 14.6 (5-15) BUN 20 H (7-18) mg/dL Creatinine 1.1 (0.7-1.3) mg/dL Est Cr Clr Drug Dosing 69.57 mL/min Estimated GFR (MDRD) > 60 (>60) mL/min BUN/Creatinine Ratio 18.2 H (14-18) Glucose 141 H (80-115) mg/dL Calcium 10.0 (8.5-10.1) mg/dL Total Bilirubin 0.5 (0.2-1.0) mg/dL AST 21 (15-37) U/L ALT 34 (16-63) U/L Alkaline Phosphatase 60 (46-116) U/L Total Protein 7.1 (6.4-8.2) g/dl Albumin 3.7 (3.4-5.0) g/dl Globulin 3.4 gm/dL Albumin/Globulin Ratio 1.1 (1-2) Urine Color Yellow (Yellow) Urine Appearance Clear (Clear) Urine pH 6.0 (5.0-8.0) Ur Specific Dale > or = 1.030 (1.005-1.030) Urine Protein Negative (Negative) Urine Glucose (UA) Negative (Negative) Urine Ketones Negative (Negative) Urine Occult Blood Negative (Negative) Urine Nitrite Negative (Negative) Urine Bilirubin Negative (Negative) Urine Urobilinogen 0.2 (0.2-1.0) Ur Leukocyte Esterase Negative (Negative) Urine RBC 0-5 (0-5) /hpf Urine WBC Not seen (0-5) /hpf Ur Squamous Epith Cells Not seen (0-5) /hpf Urine Bacteria Rare (FEW) /hpf Urine Mucus Few (FEW) /hpf Meds: Medications Discontinued Medications Generic Name Dose Route Start Last Admin Trade Name Freq PRN Reason Stop Dose Admin Diatrizoate Meglum/Diatrizoate Sod 90 ml 11/01/19 22:22 11/01/19 22:52 Gastrografin 37% PO 11/01/19 22:23 90 ml ONETIME ONE Administration Sodium Chloride 1,000 mls @ 150 mls/hr 11/01/19 21:30 11/01/19 21:29 Normal Saline IV 150 mls/hr ASDIRECTED MONSERRAT Administration Iopamidol 100 ml 11/01/19 22:22 11/01/19 22:52 Isovue-300 (61%) IVPUSH 11/01/19 22:23 100 ml ONETIME ONE Administration Levofloxacin 750 mg 11/01/19 23:33 11/02/19 00:02 Levaquin PO 11/01/19 23:34 750 mg ONETIME STA Administration Metronidazole 500 mg 11/01/19 23:33 11/02/19 00:02 Flagyl PO 11/01/19 23:34 500 mg ONETIME STA Administration Sodium Chloride 10 ml 11/01/19 22:23 11/01/19 22:52 Saline Flush FLUSH 11/01/19 22:24 10 ml ONETIME ONE Administration - Re-Assessments/Exams Free Text/Narrative Re-Assessment/Exam: 11/01/19 21:17 As above, the patient developed lower abdominal pain and a low-grade fever early this afternoon. He is afebrile here, but he is quite tender to his lower abdomen. He states that his symptoms are similar to when he suffered diverticulitis in 2017. I have ordered a work-up that includes blood work, a urinalysis, and CT of his abdomen and pelvis with oral and IV contrast. In the meantime, the patient will be given IV fluid. He declined an offer for both pain medication and anti-nausea medicine at this time. 11/01/19 23:16 The patient's CBC is remarkable for WBC count elevated at 16.93, but with only 1% bandemia. The remainder of his CBC is unremarkable. His CMP is remarkable for a BUN mildly elevated at 20, with a Cr normal at 1.1. His blood glucose is mildly elevated at 141, with the remainder of his CMP being unremarkable. His urinalysis is unremarkable. CT of the abdomen and pelvis with oral and IV contrast is read by [facility] as: 1. Severe colonic diverticulosis. Thickening of the mid to distal sigmoid colon may represent acute inflammation. There are a few extraluminal air bubbles in the right pelvis as detailed above suggesting perforation of a diverticulum. There is no free fluid. There is no abscess. 2. Bilateral lung base atelectasis. 3. Right renal cyst. 4. Pancreatic atrophy. 5. Nonspecific prostate enlargement. Left central prostatic 14 mm low- attenuation focus. Recommend clinical correlation. PSA correlation recommended. 6. 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 11/01/19 23:30 Case discussed with the [facility] Radiologist Dr. Mann at 23:27. He feels that the patient has non-classic diverticulitis with early perforation. He also mentioned that the prostate is about 5 cm x 5 cm, and should be evaluated. 11/01/19 23:42 Test results discussed with the patient. Based on the above, while the patient may have a perforation, he does not have an abscess, and therefore does not need to be hospitalized. He can be treated with a 7-day course of outpatient levofloxacin and metronidazole. I will then have him follow-up with his PCP for evaluation of his prostate, and to arrange for a colonoscopy in about 6 weeks. Departure - Departure Time of Disposition: 23:44 Disposition: Home, Self-Care 01 Condition: Good Clinical Impression: Acute diverticulitis, Enlarged prostate - Discharge Information *PRESCRIPTION DRUG MONITORING PROGRAM REVIEWED*: Not Applicable *COPY OF PRESCRIPTION DRUG MONITORING REPORT IN PATIENT EDWARD: Not Applicable Prescriptions: Levofloxacin 1 tab PO QPM #6 tablet metroNIDAZOLE [Metronidazole] 1 tab PO Q8H #20 tablet Instructions: Diverticulitis Referrals: Maximilian Louie Jr, MD [Ordering Only Provider] - Forms: ED Department Discharge Additional Instructions: You were seen in the emergency room after developing lower abdominal pain and a fever earlier this afternoon. Work-up in the ER included blood work, a urinalysis, and a CT scan of your abdomen and pelvis with oral and IV contrast. Your work-up found that you are suffering from acute sigmoid diverticulitis. You have been started on the antibiotics metronidazole (Flagyl) and levofloxacin (Levaquin) , and prescriptions for levofloxacin and metronidazole have been sent to the [facility], [facility]. Take 1 tablet of metronidazole every 8 hours, starting tomorrow morning, 11/02/2019, as prescribed. Take 1 tablet of levofloxacin every evening, starting tomorrow evening, 11/02/2019, as prescribed. Finish both prescriptions unless told otherwise by doctor. The CT scan also found that your prostate was enlarged, with an area concerning for prostate cancer. We recommend that you eat a low residue/low fiber diet for the next 2 to 3 days, until you are feeling better, after which you may resume your usual diet. In the long-term, we recommend that you eat a high-fiber diet, that includes seeds, nuts, and popcorn. We recommend that you follow-up with your PCP, Dr. Maximilian Louie, on 11/09/2019, in order to have your prostate evaluated, and to arrange for a colonoscopy to be performed about 6 weeks from now. If any other problems, please do not hesitate to return to the ER. Sepsis Event Note (ED) - Evaluation Sepsis Screening Result: No Definite Risk - Focused Exam Vital Signs: Vital Signs Temp Pulse Resp BP Pulse Ox 11/02/19 00:15 37.2 C 80 18 135/72 94 L 11/01/19 20:40 37.4 C 90 16 142/79 H 93 L - My Orders Last 24 Hours: My Active Orders 11/01/19 21:16 Abdomen Pelvis w Cont [CT] Stat - Assessment/Plan Last 24 Hours: My Active Orders 11/01/19 21:16 Abdomen Pelvis w Cont [CT] Stat
[2019-11-01] MEDS ORDERED: Sodium Chloride 0.9% 1,000 ML IV SCH (21:30)
[2019-11-01] MEDS ORDERED: Iopamidol 612 MG/ML 100 ML Bottle IVPUSH ONE (22:22)
[2019-11-01] MEDS ORDERED: Diatrizoate Meglumine/Diatrizoate Sodium 37% 120 ML Bottle PO ONE (22:22)
[2019-11-01] MEDS ORDERED: Sodium Chloride 0.9% 10 ML Syringe FLUSH ONE (22:23)
[2019-11-01] MEDS ORDERED: Levofloxacin 750 MG Tab PO STA (23:33)
[2019-11-01] MEDS ORDERED: metroNIDAZOLE 500 MG Tab PO STA (23:33)
[2019-11-02 00:35] VITALS: BP 135/72; PULSE 80
--- NOTE | 2019-11-02 07:16 | CT ---
CT abdomen and pelvis Technique: Multiple axial sections were obtained from the top of the liver inferiorly through the pubic symphysis. Intravenous and oral contrast was utilized. Delayed images were obtained through the bladder. Reconstructed coronal and sagittal images were reviewed. Comparison: No prior CT abdomen or pelvis exam, previous abdominal x-ray of 05/25/16. Findings: Mild dependent atelectasis is seen posteriorly within both lung bases. Liver contains no focal parenchymal abnormality. Spleen appears within normal limits. Adrenal glands show no nodule. Pancreas shows no discrete abnormality. Cysts is noted within the mid right kidney measuring 3.7 cm. Parapelvic cyst is noted within the left kidney. No ureteral dilatation or ureteral stone is seen. Delayed images shows contrast within the distal ureters and bladder. Aorta shows no aneurysm. Gallbladder is mostly contracted but shows no calcified gallstones. No retroperitoneal adenopathy or mesenteric abnormalities are seen. Colonic diverticuli are seen with areas of bowel wall thickening compatible with diverticulosis. Several small air bubbles noted within the right pelvis raising the possibility of ruptured diverticuli. Very early diverticulitis is a possibility. Prostate gland is enlarged. Low density nodule is noted within the left lobe of the prostate gland measuring 1.1 cm. Bone window settings were reviewed which shows degenerative change within the spine. Spondylolisthesis noted spondylolytic defects are seen at L5-S1. Impression: 1. Several small air bubbles within the right pelvis possibly representing change from ruptured diverticuli. Diverticuli are seen within the sigmoid colon. Very early diverticulitis is a possibility. 2. Nodule within the prostate gland. Please correlate with PSA. 3. Other findings as noted above which are nonacute. Diagnostic code #3 This report was dictated in MDT I agree with preliminary report from [facility], finalized on 11/02/19, 12:13 AM Central Daylight Time
== END 2019-11-02 00:30 | disposition home or self-care (01) ==
LOC: JD.ED 20:33
DX: K57.32 Diverticulitis of large intestine without perforation or abscess without bleeding (principal); N40.0 Benign prostatic hyperplasia without lower urinary tract symptoms; I10 Essential (primary) hypertension; Z79.899 Other long term (current) drug therapy
CPT/HCPCS: 36415; 74177; 80053; 81001; 85007; 85027; 96360; 96361; 99284; A9270; J7030; Q9963; Q9967

== ENCOUNTER 2024-10-22 13:51 | Emergency (ER) | payer MEDICARE, OTHER ==
[2024-10-22 14:12] VITALS: BP 148/116; PULSE 69
[2024-10-22] MEDS: Diphtheria,Pertussis(Acell),Tetanus Vaccine 0.5 ML Syringe IM ONE (15:09)
== END 2024-10-22 16:22 | disposition home or self-care (01) ==
LOC: JD.ED 13:51
DX: R07.89 Other chest pain (principal); I10 Essential (primary) hypertension; Z79.899 Other long term (current) drug therapy; W18.39XA Other fall on same level, initial encounter
CPT/HCPCS: 71101-26-LT; 71101-LT; 90471; 90715; 99283; 99283-25